=== PATIENT | female | born 1970 | race Hispanic/Latino ===

== ENCOUNTER 2019-10-08 02:20 | Inpatient (IN) | payer OTHER, SELFPAY ==
--- NOTE | 2019-10-08 03:19 | PDOC.FPRHP ---
- History of Present Illness Chief Complaint: Fall, L arm/leg weakness, dysarthria History of Present Illness: Pt is a 49 yo female with PMH significant for HTN, Graves, A-Fib who presented to the [facility] with left sided weakness, dysarthria. Her last normal was at 2300 on 10/07/19. Her family heard her take a fall in the bathroom at this time and found her on the ground. At this time she had weakness in her L upper and lower extremities, dysarthia. At the [facility] ED she was found to have an NIH 13, a-fib rate controlled. CT scan revealed ischemic injury in the R MCA distribution. Dr. Truong Castano was consulted and TPA was administered on transfer to [facility]. Pt is here visiting family from [place]. She is Telugu speaking only but family can help translate. She sees a tube repairer in [place]. - Allergies/Adverse Reactions Allergies Allergy/AdvReac Type Severity Reaction Status Date / Time No Known Allergies Allergy Unverified 10/08/19 04:13 - Home Medications Medication Instructions Recorded Confirmed Type Metoprolol Tartrate [Lopressor] 100 mg PO DAILY 10/08/19 10/08/19 History - History PMHx: HTN, Graves, A-Fib PSHx: none FHx: [place], DM, HTN Social: family denies alcohol, drugs, tobacco - Review of Systems ROS unobtainable: due to mental status - Vital signs BP: 136/85 HR: 77 RR: 16 Tmax: 98.0 Pox: 100% on RA Wt: 78 kg - Physical Exam -Constitutional: Pt responsive but unable to communicate effectively. Lying without acute distress. HEENT: PERRLA, EOMI, no scleral icterus Heart: normal S1/S2, pulses present, no edema -Heart: Irregular rhythm, regular rate Lungs: CTAB, no respiratory distress Abdomen: soft, bowel sounds present -Neurological: Dysarthria, incomprehensible speech Responds to verbal commands Sluggish pupillary light reflex L Tongue deviation, L facial droop No LUE movement, movement against gravity in LLE Unable to assess sensory due to mentation Skin: no rash/lesions Heme/Lymphatic: no purpura, no petechia FMR H&P: Results - Radiology Interpretation CT scan - head Status: report reviewed by me (R MCA Infarct) FMR H&P: A/P - Problem List (1) CVA (cerebral vascular accident) Current Visit: Yes Status: Acute Code(s): I63.9 - CEREBRAL INFARCTION, UNSPECIFIED (2) A-fib Current Visit: Yes Status: Acute Code(s): I48.91 - UNSPECIFIED ATRIAL FIBRILLATION (3) Graves disease Current Visit: Yes Status: Acute Code(s): E05.00 - THYROTOXICOSIS W DIFFUSE GOITER W/O THYROTOXIC CRISIS (4) HTN (hypertension) Current Visit: Yes Status: Acute Code(s): I10 - ESSENTIAL (PRIMARY) HYPERTENSION - Plan # CVA Embolic stroke likely secondary to atrial fibrillation. Family does not have her list of medications, unsure if pt was anti-coagulated in the outpt setting. 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 Pt also has history of TSH. LUE arm weakness no movement, LLE movement against gravity, dysarthria, facial droop, able to follow commands but does not make eye contact. CT head revealed R ischemic infarct in the MCA distribution. CTA head/neck revealed thrombus in carotid artery. NIH 13->20; GCS 12 - Neurosurg consulted, Dr. Truong Castano; he will perform thrombectomy today for R carotid artery thrombus; appreciate recs - Neurology consulted; appreciate recs - Echo, trop, UDS, TSH pending - NPO - PT/OT, speech consulted - Continous cardiac monitoring - Will need to discuss anticoag therapy post TPA - BP SBP 150-180 for TPA # A-Fib Unsure pt's medications, currently rate controlled. - Echo pending to assess thrombus - Will need t discuss anticoag therapy # HTN - as above - prn hypertensive medications # Hyperthyroidism - Continue home methimazole Fluids: none Diet: NPO VTE: none Code: Full - will need to reassess, currently mother is POA Dispo: > 48 hrs FMR H&P: Upper Level - Plan Date/Time: 10/08/19317 Lawrence Fisher MD, have evaluated this patient and agree with findings/plan as outlined by merchandising intern resident. Pertinent changes/additions are listed here. Stormy Salinas is a 49 year old F with a PMH of Hyperthyroidism, HTN, +/- hx of A fib who was transferred from [facility] for acute CVA. Pt is from [place] and is visiting family, she was in her usual state of health last night until around 2300 when family heard her fall in restroom. Found her on the floor and she had left sided facial droop, left side upper and lower extremity weakness and slurry/garbled speech. Took her to ED where CT brain revealed large left MCA CVA, no evidence of bleed. Outside ERMD discussed case with neurosurgery, Truong Castano MD, who recommended starting tPA. No exclusion criteria for thrombolysis. tPA started at 0124. EKG at outside ED showed A fib with controlled rate and ST depression in V4, V5, and V6. Vitals at outside ED showed elevated BP at 188/81 which improved to range from 130s to 170s systolic there. At [facility] ED, BP ranged from 112/86 to 158/108. No antihypertensives were ever given. All other vitals were stable and wnl. CTA head and neck was done here that showed clot in R ICA. Labs were significant for INR 1.1, PT 14, PTT 28.1, WBC 6.9, Hg 13.3, Cr 1.15, normal electrolytes. EKG here showed no change from previous. Trop was negative. On exam, GCS was 12, patient had L and R direct and consensual pupillary reflex, tongue deviated to left, unable to assess sensation adequately, 4/5 in Left LE, 1/5 in left UE, 5/5 in right UE and LE. Pain withdrew from pain in L LE and extended to pain in UE. She had proptosis and dysarthria. Patient is being admitted to CCU for acute CVA and tPA administration. Consult stroke team, PT, OT, Speech. NPO. Will consult pulmonology for CCU management in AM or if there is evidence of decompensation. Consult neuro in AM. Dr. Castano, neurosurgery, plans to do thrombectomy for clot in ICA. Monitor NIH score closely. BP goal 150-180. Will start ASA 24 hr after tPA complete. Will start high dose statin once tolerating PO. Anticipate hospital stay > 48 hours and will likely need placement. Please see merchandising intern note above for full H&P which I have reviewed and agree with.
[2019-10-08] MEDS ORDERED: [UNRECOGNIZED DRUG - REMARK] FS PRN (04:03)
[2019-10-08] MEDS ORDERED: hydrALAZINE 20 MG/ML VIAL SLOW IVP PRN (04:03)
[2019-10-08] MEDS ORDERED: Labetalol HCl 100 MG/20 ML VIAL SLOW IVP PRN (04:03)
[2019-10-08] MEDS ORDERED: Sodium Chloride 0.9% (PF) 10 ML VIAL FS PRN (04:35)
[2019-10-08] MEDS ORDERED: Heparin (Artline) 500 ML ONE ×2 (05:16→05:52)
[2019-10-08] MEDS ORDERED: Heparin 10,000 UNITS/1 ML VIAL ONE ×2 (05:17→06:14)
--- NOTE | 2019-10-08 06:08 | PRG ---
DATE OF SERVICE: 10/08/2019 Ms. Salinas is a 49-year-old female, who presented to an outside ER late this evening with dense hemiparesis and facial droop on her left. She underwent a noncontrast CT at the time, which was negative for hemorrhage. She was administered tPA and transferred to [facility] for further evaluation. Upon her arrival here, she underwent CT angiogram of the head, which revealed the presence of occlusion within the middle cerebral artery on the right side, which would be consistent with her clinical deficits. She was admitted to the ICU for further observation. The ER called me after she had been admitted to inform me of her imaging. I reviewed the imaging and decided she would be a good candidate for mechanical thrombectomy. The photographic laboratory technician and anesthesia were activated. The plan will be to perform cerebral angiography with potential mechanical thrombectomy. Job ID: [id number]
[2019-10-08] MEDS ORDERED: SUGAMMADEX SODIUM 500 MG/5 ML VIAL ONE (06:52)
--- NOTE | 2019-10-08 07:42 | CT ---
PRELIMINARY REPORT/DIRECT RADIOLOGY/EMERGENCY AFTER HOURS PROCEDURE: This report was discussed with Michel Henriquez RN by Nancy Madrigal on Oct 08, 2019 04:05:00 GAS LOAD DISPATCHER. Addendum electronically signed by Nancy Madrigal on October 08, 2019 4:06:14 AM GAS LOAD DISPATCHER EXAMS: 1. CTA Head, without and with Contrast 2. CTA Neck, with Contrast DATE/ TIME: 10/08/2019, 2:59 AM INDICATION: Left-sided hemiparesis. TPA administered at 0124 hrs. NIH 19. TECHNIQUE: Helical noncontrast CT imaging of the head was performed. Helical CT was then performed through the neck and brain during the rapid intravenous administration of 70 mL Isovue-370 utilizing angiographic protocol. The CTA data set was postprocessed with multiplanar MIPs generated. NOTE: Stenosis measurements based on the NASCET criteria and/or validated velocity measurements with angiographic measurements; velocity criteria are extrapolated from diameter data as defined by t he Society of Radiologists in Ultrasound Consensus Conference. Radiology 2003; 229; 340-346. Exam was performed using one or more of the following dose reduction techniques: automated exposure contr ol, adjustment of the mA and/or kV according to patient size, or use of iterative reconstruction technique. COMPARISON: None. CTA BRAIN FINDINGS: Noncontrast imaging shows no intracranial hemorrhage, mass or mass effect. A 2. 9 x 2.2 x 2.3 cm region of encephalomalacia is noted laterally in the left frontal lobe compatible with prior infarct. Subtle blurring of the murdock-white differentiation in the right insula is seen. Orbital structures are unremarkable. A 2.0 x 1.5 x 2.0 cm mucous retention cyst posteriorly in the right maxillary antrum is noted. Remaining paranasal sinuses and mastoid air cells are clear. Denta l disease is seen including periodontal bone resorption with dental caries. The right M1 segment is occluded. Contrast is seen within peripheral branches of the right MCA appar ently from collateralization. Posterior circulation appears to be normal. Neither posterior communicating artery is seen. IMPRESSION: 1. OCCLUDED right M1 segment with early noncontrast CT changes of an acute ischemic injury. 2. Remote infarct within the left frontal lobe. CTA NECK FINDINGS: The initial images begins at the level of the main pulmonary outflow tract. Visu alized upper lung zones are clear. The aortic arch is smooth. Three-vessel arch anatomy is demonstrated. Common carotid arteries are normal in course and caliber. In the right carotid bulb e xtending into the right external carotid artery is a bland 1.4 x 0.6 x 0.8 cm thrombus. Contrast is seen within the right internal carotid artery although the origin has a significantly compromised crescentic lumen. Mild soft plaquing is noted posteriorly in the left carotid bulb extending into the left internal carotid artery causing mild stenosis approximating 30 percent. Vertebral arteries are patent and relatively codominant. Thyroid gland is enlarged with the left lobe measuring 7.1 x 3.6 x 4.9 cm and the right 7.3 x 2.9 x 4.3 cm. The isthmus is thickened measuring 17 mm. There is n o malalignment within the visualized spine. IMPRESSION: 1. Large thrombus at the right carotid bulb narrowing the origin of the right internal carotid arter y. 2. Soft plaquing in the left carotid bulb. 3. Thyromegaly. ELECTRONICALLY SIGNED BY: Joseluis Kruger DO Oct 08, 2019 4:01:14 AM GAS LOAD DISPATCHER FINAL REPORT: CTA ANGIO HEAD WITH AND WITHOUT CONTRAST CT BRAIN WITHOUT CONTRAST: History: Stroke protocol. Comparison: CT brain same day. Findings: CT brain was performed without the intravenous administration of contrast. Subsequently CT angiogram was performed after the intravenous ministration of contrast. 3-D rendering provided. Impression: Findings and impression are concordant with the preliminary report. Transcribed Date/Time: 10/08/2019 7:53 AM
[2019-10-08 07:47] LABS: Actual Bicarbonate (HCO3a) 15.4 mEq/L (22-28); Base Excess (BEa) -11.9 mEq/L (-2.0 to +3.0); CO2 Tension 39.7 mmHg (35.0-45.0); Calcium, Ionized 1.01 mmol/L (1.12-1.30); Carboxyhemoglobin (COHb) 1.1 gm% (0.0-3.0); Hemoglobin (Hb) 12.4 g/dL (12.0-16.0); O2 Tension (PaO2) 80.9 mmHg (80.0-100.0); Potassium - ABG Lab 3.95 mmol/L (3.70-5.30)
[2019-10-08 07:48] LABS: ALV-art Gradient 225.975 (0-20); Puncture Site ALINE; pH, Arterial 7.21 (7.35-7.45)
[2019-10-08] MEDS ORDERED: methylPREDNISolone Sod Succ 40 MG VIAL IVP SCH (08:45)
[2019-10-08] MEDS ORDERED: Furosemide 20 MG/2 ML VIAL SLOW IVP SCH (09:00)
--- NOTE | 2019-10-08 09:01 | CON ---
DATE OF CONSULTATION: 10/08/2019 SERVICE: Pulmonary Medicine. REASON FOR CONSULTATION: ICU patient. HISTORY OF PRESENT ILLNESS: The patient is a 49-year-old female with past medical history significant for hypertension. She presented to the emergency department after onset of neurologic dysfunction. She was thought to be a candidate for tPA and brought to the manager cardiac cath. The tPA was administered overnight. During the procedure, she was sedated and intubated. She was promptly extubated, and brought to the ICU. Currently, she is poorly responsive. With stimulation, she will wake up appropriately and follows some simple commands. That being said, she appears to have some degree of obstructive sleep apnea as well as respiratory distress. I cannot get any additional elements of the history from the patient currently. PAST MEDICAL HISTORY: 1. Hypertension. 2. Graves' disease. 3. Atrial fibrillation. 4. History of stroke. PAST SURGICAL HISTORY: None. SOCIAL HISTORY: Negative for alcohol, tobacco, or illicit drug use. FAMILY HISTORY: Noncontributory. ALLERGIES: NO KNOWN DRUG ALLERGIES. MEDICATIONS: List of her inpatient medications were reviewed. I have added some Lasix and nebulized medications. REVIEW OF SYSTEMS: Cannot be obtained as the patient is currently obtunded. PHYSICAL EXAMINATION: VITAL SIGNS: Afebrile; pulse 80; blood pressure 192/80; respirations 14; and saturation 100%, currently on a Ventimask. GENERAL: The patient is somnolent. With some stimulation, she will wake up and follow appropriately. She will then drift off back to sleep. HEENT: Normocephalic and atraumatic. Sclerae are white. Conjunctivae are pink. Oral mucosa is moist without lesions. Exophthalmos is present. LUNGS: Decent air entry. There is a prolonged expiratory phase with both crackles, rhonchi, and wheezing present. HEART: Normal rate. Regular. ABDOMEN: Soft. Distended. Bowel sounds are hypoactive. MUSCULOSKELETAL: No cyanosis or clubbing. There is no pitting edema. NEUROLOGIC: Left upper extremity is weak. The left lower extremity has a 4- strength, everywhere else is 5/5. LABORATORY DATA: PH of 7.21, pCO2 of 39, and pO2 of 81. TSH is below the assay limit of 0.0025. Troponin 0.20. IMAGING DATA: CT of the [place] demonstrates no acute neuroimaging finding. Angiographic imaging shows no acute intracranial arterial pathology. There is a large thrombus, however, at the right carotid bulb narrowing the origin of the right internal carotid artery. Soft plaquing in the left carotid bulb is present. Thyromegaly is present. ASSESSMENT: 1. Acute cerebrovascular accident, status post tPA and subsequent mechanical thrombectomy. 2. Acute hypoxic respiratory failure. 3. Graves' disease with hyperthyroidism. 4. Metabolic encephalopathy. 5. Metabolic acidosis with inappropriate compensation. DISCUSSION AND PLAN: The patient has some crackles. I will give her a dose of Lasix. She is also wheezing and so we will initiate some nebulized medications. We are going to watch her airway very closely over the next 4 to 5 hours. If she shows any signs of increasing respiratory issues, repeat intubation will be performed. We will watch her very closely in the ICU. Hopefully, she will have good resolution of her neurologic insult. Critical Care will follow. I do believe that she would benefit from suppression of thyroid. 70 minutes have been devoted to this patient in various activities. I personally reviewed all imaging studies and laboratory data noted within this document. For fifty percent of this time, I was interacting with the patient at the bedside or coordinating care with the care team. For the remainder of the time I was immediately available to the patient in the hospital unit. Job ID: [id number] [facility]
--- NOTE | 2019-10-08 09:05 | CON ---
DATE OF CONSULTATION: 10/08/2019 CONSULTING PHYSICIAN: Hospitalist Service. IMPRESSION: 1. Acute left internal carotid artery stroke, status post thrombectomy. 2. Intermittent atrial fibrillation. 3. Hypertension. 4. Hyperthyroidism. 5. Respiratory distress, possibly secondary to some congestive heart failure. PLAN: 1. Repeat CT of the brain tomorrow. 2. Echocardiogram. 3. Consider long-term antiplatelet or anticoagulation depending on the cardiac status. HISTORY OF PRESENT ILLNESS: Ms. Salinas is a 49-year-old female, in town from [place]. She apparently collapsed to the floor and was noted to have left-sided weakness. She was initially treated with tPA and transferred here. CT angiogram showed some residual clot in the internal carotid artery. Dr. Castano did a thrombectomy last evening. She has been transferred to the ICU. She was transiently intubated. She is now extubated. She is Fijian-speaking only. There is no other available history. PAST HISTORY: Hypothyroidism. ALLERGIES: NONE KNOWN. SOCIAL HISTORY: Unknown. FAMILY HISTORY: Unknown. REVIEW OF SYSTEMS: Not obtainable. MEDICATIONS: Reportedly some hypothyroid supplement. PHYSICAL EXAMINATION: GENERAL: She is an overweight, middle-aged woman, lying in bed, with snoring respirations. VITAL SIGNS: Blood pressure 155/72, pulse 84, respirations 14, and saturations 100% with oxygen supplementation. HEENT: Her eyes are proptotic. Her pupils are equal. Eyes are conjugate. Conjunctivae are clear. Oropharynx clear. NECK: Supple. No lymphadenopathy. EXTREMITIES: No edema present. NEUROLOGIC: She will open her eyes to stimulation. We could not get her to verbalize. She had roving eye movements. Her face was grossly symmetric. She had some antigravity strength on the left side. She had better movement on the right. Plantar response was upgoing on the left and downgoing on the right. No abnormal movements were seen. IMAGING STUDIES: EKG shows a somewhat irregular rhythm, which appears to be intermittent sinus and atrial fibrillation intermixed by my assessment. LABORATORY STUDIES: Reviewed. SUMMARY: This is a middle-aged woman with a probable cardioembolic stroke resulting in left-sided paralysis. Continue to monitor her clinical course and make a plan of care depending on the findings. Job ID: [id number]
[2019-10-08] MEDS: Pantoprazole 40 MG VIAL IVP SCH (09:30)
[2019-10-08] MEDS: Metoprolol Tartrate 25 MG TAB PO SCH ×3 (09:35→21:30)
[2019-10-08] MEDS ORDERED: Iopamidol 370 76% 100 ML VIAL ONE (09:56)
[2019-10-08] MEDS ORDERED: Ondansetron PF 4 MG/2 ML Vial ONE (10:31)
[2019-10-08] MEDS ORDERED: Glycopyrrolate 0.2 MG/ML 5 ML SYRINGE ONE (10:31)
[2019-10-08] MEDS ORDERED: Succinylcholine Chloride 20 MG/ML 10 ml SYRINGE FS ONE (10:31)
[2019-10-08] MEDS ORDERED: PROPOFOL 200 MG/20 ML VIAL ONE (10:31)
[2019-10-08] MEDS ORDERED: PHENYLEPHRINE-NS 100 MCG/ML 10 ML SYRINGE ONE (10:31)
[2019-10-08] MEDS ORDERED: Rocuronium Bromide 10 MG/ML (10ML VIAL) ONE (10:31)
[2019-10-08] MEDS ORDERED: Lidocaine 1% PF 5 ML VIAL ONE (10:31)
[2019-10-08] MEDS ORDERED: niCARdipine 25 MG in Sodium Chloride 0.9% 250 ML 250 ML IVPB PRN (11:00)
[2019-10-08] MEDS ORDERED: Propofol 1,000 MG/100 ML VIAL IV ONE (11:23)
[2019-10-08] MEDS ORDERED: SYSTANE 3.5 GM TUBE EA EYE PRN (11:25)
[2019-10-08] MEDS ORDERED: Ventilator Sedation Protocol 1 EACH FS SCH (11:30)
[2019-10-08] MEDS ORDERED: Fentanyl BOLUS 250 ML IVPB PRN (11:32)
[2019-10-08] MEDS ORDERED: fentaNYL Citrate/PF 2,000 MCG in Sodium Chloride 0.9% 60 ML IV SCH (11:32)
[2019-10-08] MEDS ORDERED: Morphine 2 MG/ML SYRINGE SLOW IVP PRN (11:32)
[2019-10-08] MEDS ORDERED: DISCONTINUE PREVIOUS NARCOTIC PAIN MEDICATIONS AND BENZODIAZEPINES FS SCH (11:32)
[2019-10-08] MEDS ORDERED: Propofol BOLUS 1,000 MG/100 ML VIAL IV PRN (11:32)
[2019-10-08] MEDS: Lorazepam 2 MG/ML VIAL SLOW IVP PRN ×3 (12:12→19:53)
[2019-10-08] MEDS: Propylthiouracil 50 MG TAB PO SCH ×2 (12:20→18:09)
[2019-10-08 12:21] LABS: Actual Bicarbonate (HCO3a) 15.2 mEq/L (22-28); Base Excess (BEa) -9.7 mEq/L (-2.0 to +3.0); CO2 Tension 30.9 mmHg (35.0-45.0); Calcium, Ionized 1.06 mmol/L (1.12-1.30); Hemoglobin (Hb) 12.9 g/dL (12.0-16.0); O2 Tension (PaO2) 84.2 mmHg (80.0-100.0); Potassium - ABG Lab 3.83 mmol/L (3.70-5.30); pH, Arterial 7.31 (7.35-7.45)
[2019-10-08 12:42] LABS: Peep/CPAP 4.5 cmH2O; Puncture Site RRA
[2019-10-08 12:43] LABS: ALV-art Gradient 126.725 (0-20)
[2019-10-08] MEDS: Propofol 1,000 MG/100 ML VIAL IV PRN ×2 (13:40→18:16)
[2019-10-08] MEDS ORDERED: Hydrocortisone Sod Succ/PF 250 mg/2 ml Vial SLOW IVP SCH (14:00)
[2019-10-08] MEDS ORDERED: Hydrocortisone Sod Succ/PF 100 mg/2 ml Vial IVP SCH (14:30)
[2019-10-08] MEDS ORDERED: Diltiazem HCl 125 MG, Admixture Fee 1 EACH in Sodium Chloride 0.9% 100 ML IVPB SCH (14:45)
[2019-10-08] MEDS ORDERED: Iopamidol 370 76% 50 ML VIAL FS ONE ×2 (15:27→15:58)
--- NOTE | 2019-10-08 16:31 | OP ---
DATE OF PROCEDURE: 10/08/2019 SERVICE: Pulmonary Medicine. PROCEDURE PERFORMED: Emergent endotracheal intubation. CONSENT: Procedure was performed emergently secondary to clinical deterioration and respiratory failure. MEDICATIONS USED: Propofol 100 mg IV push. PREPROCEDURE DIAGNOSES: 1. Acute hypoxic respiratory failure. 2. Recent cerebrovascular accident with debility. 3. Respiratory failure secondary to inability to protect airway. POSTPROCEDURE DIAGNOSES: 1. Acute hypoxic respiratory failure. 2. Recent cerebrovascular accident with debility. 3. Respiratory failure secondary to inability to protect airway. DESCRIPTION OF PROCEDURE: Vital sign monitoring was accomplished by noninvasive hemodynamic monitoring, pulse oximetry, and telemetry. In the supine position, the patient was preoxygenated with [id number] ventilation and maintained with saturations of 100%. Following induction of anesthesia, a #3 GlideScope was inserted through the mouth, offering clear identification of the posterior oropharynx and laryngeal structures with a grade 2 view. A 7.5-Chinese endotracheal tube was visualized, passing through the vocal cords. Placement was confirmed by condensation in the endotracheal tube, colorimetric capnography, and bi-axillary chest auscultation. The endotracheal tube was secured at 23 cm, measured at the teeth. The patient was placed on mechanical ventilation with good return of volumes. Postprocedure x-ray demonstrated good location for the endotracheal tube in the trachea. ESTIMATED BLOOD LOSS: None. COMPLICATIONS: None. Job ID: [id number]
[2019-10-08 17:18] LABS: Amphetamine Not Detected (NotDetected); Barbiturates Screen Not Detected (NotDetected); Benzodiazepine Screen Detected (NotDetected); Cocaine Metabolite Screen Not Detected (NotDetected); Medtox Control Line Valid? VALID (VALID); Medtox Reader # READER 4; Methadone Not Detected (NotDetected); Methamphetamine Not Detected (NotDetected); Opiate Screen Not Detected (NotDetected); Oxycodone Screen Not Detected (NotDetected); Phencyclidine (PCP) Not Detected (NotDetected); THC/Cannabinoid Screen Not Detected (NotDetected); Tricyclic Screen Not Detected (NotDetected)
--- NOTE | 2019-10-08 18:06 | CT ---
CT OF BRAIN PERFORMED WITHOUT CONTRAST ENHANCEMENT: 10/08/19 HISTORY: Follow-up of stroke. COMPARISON: CT angio of head and CT noncontrast study of the brain performed earlier today. Old appearing infarct in the left parasylvian and occipital regions are again demonstrated. There is continued effacement of the sulci over the right frontal convexity and now there is some rel ative increased hyperdensity seen within the right parasylvian region. This would suggest some luxury perfusion. Changes probably represent petechial hemorrhage. There is effacement to the right frontal horn but not any significant shift of midline structures. IMPRESSION: Evidence for increasing edema change in the right middle cerebral artery territory. There is also elisha e mild hyperdensity in the external capsule region and the parasylvian region which could indicate carmelita xury perfusion and probably indicates fine petechial hemorrhage in this region. Follow CTs are recomm ended. POS: JOHN
--- NOTE | 2019-10-08 20:14 | CCL ---
DATE OF SERVICE: 10/08/19 SURGEON: Joseluis Castano M.D. CONVENTION PLANNER: None. INDICATION: Right middle cerebral artery thrombus with occlusion. PROCEDURE: Angiography with mechanical thrombectomy. ANESTHESIA: General. TECHNIQUE: The patient is brought to the angiogram suite and placed on the table in the supine position. She was placed under general anesthesia. Both groins were prepped and draped in the usual sterile fashion. F ollowing an appropriate preoperative pause, a 5 Cook Islander micropuncture set was used to gain access to t he right common femoral artery. That was exchanged for an 8 [place] Islander sheath. An 8 [place] Islander concentric dia de catheter was passed over a long vertebral catheter which was passed over a Bentzen guide wire wher e the right internal carotid artery was selectively catheterized. An AP and lateral angiogram was the n performed. After confirming presence of clot with occlusion of the M1 branch of the right middle ce rebral artery a Trevo device was deployed a total of three times. Each time there was material within the Trevo basket. The third time however, lead to complete zoroastrian of blood flow. All catheters were then removed. The sheath was sewn into place due to recent administration of TPA. The procedure came to an end without any known complication. IMPRESSION: The patient underwent successful angiography as well as successful mechanical thrombectomy with compl ete zoroastrian of normal blood flow.
[2019-10-08] MEDS: Hydrocortisone Sod Succ/PF 100 mg/2 ml Vial IVP SCH (21:30)
[2019-10-09] MEDS: Lorazepam 2 MG/ML VIAL SLOW IVP PRN ×2 (01:03→03:55)
[2019-10-09] MEDS: Propylthiouracil 50 MG TAB PO SCH ×2 (02:41→06:36)
[2019-10-09 05:58] LABS: Anion Gap 13 mmol/L (10-20); BUN (Urea Nitrogen) 18 mg/dL (9.8-20.1); Calc. Creatinine Clearance 75 mL/min (70-130); Calcium 8.3 mg/dL (7.8-10.44); Carbon Dioxide 18 mmol/L (22-29); Cardiac Risk 2.9 (Less than 4.5); Chloride 114 mmol/L (98-107); Cholesterol 94 mg/dl (< 200 Desired); Estimated GFR-MDRD 52; Glucose 161 mg/dL (70-105); HDL Cholesterol 32 mg/dL (>60 Neg Risk); LDL Cholesterol, Calculated 52 mg/dL; Potassium 3.2 mmol/L (3.5-5.1); Sodium 142 mmol/L (136-145); Triglycerides 52 mg/dL (Less than 150)
--- NOTE | 2019-10-09 06:14 | PDOC.FM ---
- Subjective Subjective: pt intubated and sedated, responds to pain and verbal stimulation - Objective Vital Signs & Weight: Vital Signs (12 hours) Temp Pulse Resp BP Pulse Ox 10/09/19 05:00 98.4 F 10/09/19 04:00 13 10/09/19 02:28 103 H 110/53 L 10/09/19 02:00 13 10/09/19 00:07 123 H 129/57 L 10/09/19 00:00 13 10/08/19 22:00 13 10/08/19 21:50 94 107/49 L 10/08/19 20:00 13 97 10/08/19 19:00 98.6 F 10/08/19 18:38 74 111/57 L Weight Admit Weight 71.214 kg Weight 79.7 kg Most Recent Monitor Data Heart Rate from ECG 106 NIBP 103/56 NIBP BP-Mean 76 Respiration from ECG 16 SpO2 95 I&O: 10/07/19 10/08/19 10/09/19 06:59 06:59 06:59 Intake Total 0 331 Output Total 0 2095 Balance 0 -1764 Result Diagrams: 10/09/19 05:10 10/09/19 05:10 Phys Exam - Physical Examination Constitutional: NAD HEENT: moist MMs pupils fixed and constricted Neck: supple Respiratory: clear to auscultation bilateral Cardiovascular: no significant murmur, irregular Gastrointestinal: soft Musculoskeletal: no edema, pulses present retracts from pain on right. non intentional movement on the left Skin: no rash Dx/Plan (1) A-fib Code(s): I48.91 - UNSPECIFIED ATRIAL FIBRILLATION Status: Acute (2) CVA (cerebral vascular accident) Code(s): I63.9 - CEREBRAL INFARCTION, UNSPECIFIED Status: Acute (3) Graves disease Code(s): E05.00 - THYROTOXICOSIS W DIFFUSE GOITER W/O THYROTOXIC CRISIS Status : Acute (4) HTN (hypertension) Code(s): I10 - ESSENTIAL (PRIMARY) HYPERTENSION Status: Acute - Plan Plan: CVA involving R MCA - s/p tPA, R ICA mechanical thrombectomy - Neurosurg consulted, Neurology consulted; appreciate recs - Echo, trop, UDS, wnl - post infarct cerebral edema- serial CTs- neurosurg aware ventilator care - required re-intubation 2/2 to resp. distress post op 1/3 - pulm consulted, appreciate recs A-Fib - rate controlled, continue BB - echo wnl - cards consulted, appreciate recs HTN - as above - prn hypertensive medications Hyperthyroidism - TSH low, T4 wnl - concern for thyroid storm, PTU began Hypokalemia - monitor and replace Fluids: LR @ 100ml/hr Diet: NPO Code: Full - will need to reassess, currently mother is POA Dispo: continue to monitor and treat on ccu
[2019-10-09] MEDS: Hydrocortisone Sod Succ/PF 100 mg/2 ml Vial IVP SCH ×3 (06:36→21:36)
[2019-10-09 06:40] LABS: #Lymphocytes 0.5 thou/uL (1.20-3.40); #Monocytes 0.4 thou/uL (0.11-0.59); #Neutrophils 11.2 thou/uL (1.40-6.50); %Eosinophils 0.1 % (0.0-10.0); %Lymphocytes 4.1 % (21.0-51.0); %Monocytes 3.5 % (0.0-10.0); %Neutrophils 92.4 % (42.0-75.0); Hemoglobin 11.5 g/dL (12.0-16.0); Mean Corpuscular HGB CONC 34.3 g/dL (32.0-36.0); Mean Corpuscular Hemoglobin 28.4 pg (27.0-31.0); Mean Corpuscular Volume 82.8 fL (78.0-98.0); Mean Platelet Volume 10.1 fL (7.4-10.4); Platelet Count 116 thou/uL (130-400); Platelet Morphology Comment Appears Decreased; RBC Distribution Width 12.6 % (11.5-14.5); Red Blood Cell (RBC) Count 4.06 mill/uL (4.20-5.40); White Blood Cell (WBC) Count 12.1 thou/uL (4.8-10.8)
[2019-10-09] MEDS ORDERED: Lactated Ringer's 1,000 ML IV SCH ×2 (08:15→10:23)
[2019-10-09] MEDS ORDERED: Potassium Chloride 40 MEQ in Sodium Chloride 0.9% 500 ML IVPB SCH (08:15)
[2019-10-09] MEDS: Pantoprazole 40 MG VIAL IVP SCH (08:23)
[2019-10-09] MEDS: Metoprolol Tartrate 25 MG TAB PO SCH ×2 (08:23→21:36)
--- NOTE | 2019-10-09 08:34 | CT ---
PRELIMINARY REPORT/[facility]/AFTER HOURS PROCEDURE CT HEAD WITHOUT INTRAVENOUS CONTRAST: CLINICAL HISTORY: F/U stroke. TECHNIQUE: Axial computed tomography images of the head/brain without intravenous contrast. COMPARISON: CT\SR - CT BRAIN WO CON - 10/08/2019 05:40 PM LEGAL STENOGRAPHER FINDINGS: BRAIN: Chronic microvascular ischemic disease is seen. Evolving hemorrhagic infarct is identified in the right basal ganglia with increased vasogenic edema and mild effacement of underlying sulci. Eff acement of the frontal horn of the right lateral ventricle is seen. No significant right to left mid line shift is seen. Old infarct with encephalomalacia is seen in the left frontoparietal lobe. Old infarct with encephalomalacia is identified in the left posterior parietal-occipital lobe. VENTRICLES: No hydrocephalus. ORBITS: The orbits are unremarkable. SINUSES AND MASTOIDS: The paranasal sinuses and mastoid air cells are clear. SOFT TISSUES: No significant facial or scalp soft tissue swelling evident. No radiopaque foreign body is seen. BONES: No acute skull fracture. IMPRESSION: Evolving hemorrhagic infarct in the right basal ganglia. ELECTRONICALLY SIGNED BY: Reed Noble MD Oct 09, 2019 4:37:05 AM LEGAL STENOGRAPHER This report is intended for review by the ordering physician only, in accordance of law. If you recei ve this report in error, please call [facility] at [phone]. FINAL REPORT CT BRAIN WITHOUT CONTRAST: I agree with the preliminary report given by Dr. Reed Noble of [facility]. CODE QA POS: [facility]
[2019-10-09] MEDS ORDERED: Digoxin 0.5 MG/2 ML AMP SLOW IVP SCH (10:30)
--- NOTE | 2019-10-09 10:44 | PRG ---
DATE OF SERVICE: 10/09/2019 SERVICE: Pulmonary Medicine. INTERVAL HISTORY: Overnight, the patient went down for a CT scan. Ultimately, there was some small hemorrhages that were identified. Otherwise, the patient did not have any significant changes overnight. She is exquisitely sensitive to stimulation. Whenever she is touched, she has purposeful movement, but is not following any commands in Amharic or [place] at this point. She had a low-grade temperature, but otherwise no overt fevers. PHYSICAL EXAMINATION: VITAL SIGNS: Afebrile, pulse 117, blood pressure 123/54, respirations 14, saturation 100% on 21% FiO2 and a PEEP of 5. GENERAL: The patient is intubated and sedated. HEENT: Normocephalic and atraumatic. Sclerae white. Conjunctivae pink. Oral mucosa is moist without lesions. LUNGS: Decent air entry. Rhonchi are present, but there is no prolonged expiratory phase. HEART: Normal rate. Regular. ABDOMEN: Soft, nontender, nondistended. Bowel sounds are positive. MUSCULOSKELETAL: No cyanosis or clubbing. There is no pitting in the bilateral lower extremities. LABORATORY DATA: WBC 12.1, hemoglobin 11.5, and platelets 116,000. PH 7.31, pCO2 of 31, PO2 of 85. Potassium 3.2. Basic metabolic profile is otherwise unremarkable. Creatinine 1.11. Liver function studies otherwise unremarkable. TSH is below the assay limit. T4 was performed yesterday, which fell within the normal limits. That being said, it was repeated today and elevated. This was after initiation of anti-thyroid medications. DIAGNOSTIC DATA: CT of the head demonstrates edema of the right MCA territory. Fine petechial hemorrhages were also identified in the external capsule of the perisylvian region evolving hemorrhagic infarct of the right basal ganglia. There is multiple areas of encephalomalacia associated with previous strokes. ASSESSMENT: 1. Acute cerebrovascular accident, status post tPA and subsequent mechanical thrombectomy. 2. Graves disease with hyperthyroidism. 3. Metabolic encephalopathy. 4. Metabolic acidosis, resolving. DISCUSSION AND PLAN: We will introduce some tube feeds. Every time we remove sedation, she is not purposeful but thrashes about. As such, we are going to sedate her again, initiate Precedex, remove the sheath and after the Precedex has a chance to be in, slowly titrate the propofol downward. IV fluids will be minimized to less than maintenance doses. She will remain on the ventilator overnight. CRITICAL CARE TIME: 30 minutes. Job ID: [id number]
--- NOTE | 2019-10-09 11:15 | PRG ---
DATE OF SERVICE: 10/09/2019 I have examined the patient and discussed the case with Dr. Kevin Dobbins. I agree with his assessment and plan. Unfortunately, the CT was pointing towards possible extension of a small hemorrhage associated with her stroke. Job ID: [id number]
[2019-10-09] MEDS: Propofol 1,000 MG/100 ML VIAL IV PRN (13:45)
[2019-10-09] MEDS: Famotidine 20 MG TAB PO SCH (21:36)
[2019-10-10 05:03] LABS: Anion Gap 11 mmol/L (10-20); BUN (Urea Nitrogen) 19 mg/dL (9.8-20.1); Calc. Creatinine Clearance 92 mL/min (70-130); Calcium 8.4 mg/dL (7.8-10.44); Carbon Dioxide 20 mmol/L (22-29); Chloride 116 mmol/L (98-107); Estimated GFR-MDRD 64; Glucose 137 mg/dL (70-105); Phosphorus 2.8 mg/dL (2.3-4.7); Potassium 4.5 mmol/L (3.5-5.1); Sodium 142 mmol/L (136-145)
[2019-10-10 05:07] LABS: #Lymphocytes 0.5 thou/uL (1.20-3.40); #Monocytes 0.5 thou/uL (0.11-0.59); #Neutrophils 8.1 thou/uL (1.40-6.50); %Eosinophils 0.2 % (0.0-10.0); %Lymphocytes 5.3 % (21.0-51.0); %Neutrophils 89.6 % (42.0-75.0); Hemoglobin 11.3 g/dL (12.0-16.0); Large Platelets SLIGHT; MDiff Complete? YES; Mean Corpuscular HGB CONC 33.6 g/dL (32.0-36.0); Mean Corpuscular Hemoglobin 28.2 pg (27.0-31.0); Mean Corpuscular Volume 83.9 fL (78.0-98.0); Platelet Count 84 thou/uL (130-400); Platelet Morphology Comment Appears Decreased; Red Blood Cell (RBC) Count 4.01 mill/uL (4.20-5.40)
[2019-10-10] MEDS: Hydrocortisone Sod Succ/PF 100 mg/2 ml Vial IVP SCH (06:19)
--- NOTE | 2019-10-10 06:21 | PDOC.FM ---
- Subjective Subjective: pt intubate and sedated, follows, responds to pain and verbal stimuli - Objective Vital Signs & Weight: Vital Signs (12 hours) Temp Pulse Resp BP Pulse Ox 10/10/19 06:00 21 H 10/10/19 04:00 98.6 F 20 10/10/19 02:30 95 142/75 H 10/10/19 02:00 15 10/10/19 00:11 82 143/63 H 10/10/19 00:00 98.3 F 17 10/09/19 22:17 89 128/57 L 10/09/19 22:00 14 10/09/19 20:00 13 100 10/09/19 19:00 97.8 F 10/09/19 18:45 85 141/59 H Weight Admit Weight 71.214 kg Weight 80.8 kg Most Recent Monitor Data Heart Rate from ECG 78 NIBP 144/58 NIBP BP-Mean 86 Respiration from ECG 19 SpO2 98 I&O: 10/08/19 10/09/19 10/10/19 06:59 06:59 06:59 Intake Total 0 860.2 907 Output Total 0 2235 1160 Balance 0 -1374.8 -253 Result Diagrams: 10/10/19 04:07 10/10/19 04:07 Phys Exam - Physical Examination Constitutional: NAD HEENT: moist MMs Neck: supple Respiratory: clear to auscultation bilateral Cardiovascular: no significant murmur, irregular Gastrointestinal: soft, no distention Musculoskeletal: no edema, pulses present some withdrawal to pain on left leg, none on L arm. purposeful movement on right Dx/Plan (1) A-fib Code(s): I48.91 - UNSPECIFIED ATRIAL FIBRILLATION Status: Acute (2) CVA (cerebral vascular accident) Code(s): I63.9 - CEREBRAL INFARCTION, UNSPECIFIED Status: Acute (3) Graves disease Code(s): E05.00 - THYROTOXICOSIS W DIFFUSE GOITER W/O THYROTOXIC CRISIS Status : Acute (4) HTN (hypertension) Code(s): I10 - ESSENTIAL (PRIMARY) HYPERTENSION Status: Acute - Plan Plan: CVA involving R MCA - s/p tPA, R ICA mechanical thrombectomy - Neurosurg consulted, Neurology consulted; appreciate recs - Echo, trop, UDS, wnl - consider restarting anti-coagulation ventilator care - required re-intubation 2/2 to resp. distress post op 1/3 - pulm consulted, appreciate recs - initiated tube feeds, precedex A-Fib - rate controlled, continue BB - echo wnl - cards consulted, appreciate recs HTN - as above - prn hypertensive medications Hyperthyroidism - TSH low, T4 wnl - concern for thyroid storm, PTU began Hypokalemia - monitor and replace Fluids: LR @ 100ml/hr Diet: NPO Code: Full - will need to reassess, currently mother is POA Dispo: continue to monitor for ability to wean vent
[2019-10-10] MEDS: Metoprolol Tartrate 25 MG TAB PO SCH ×2 (09:14→20:31)
[2019-10-10] MEDS: Famotidine 20 MG TAB PO SCH ×2 (09:14→20:31)
--- NOTE | 2019-10-10 10:48 | PRG ---
DATE OF SERVICE: 10/10/2019 I have examined the patient and discussed the case with Dr. Kevin Dobbins. I agree with his assessment and plan. Job ID: [id number]
[2019-10-10] MEDS ORDERED: Fleet Enema 133 ML BOT PR SCH (12:30)
[2019-10-10] MEDS ORDERED: Mineral Oil PER 1 ML PO SCH (12:30)
[2019-10-10] MEDS ORDERED: Milk Of Magnesia 30 ML UDCUP PO SCH (12:30)
--- NOTE | 2019-10-10 12:33 | PRG ---
DATE OF SERVICE: 10/10/2019 SERVICE: Pulmonary Medicine. INTERVAL HISTORY: The patient is doing fine from respiratory standpoint. That being said, from neurologic standpoint, she has not made any significant improvement. She cannot provide additional elements of the history. Currently, she is off sedation. She intermittently has appropriate movement. PHYSICAL EXAMINATION: VITAL SIGNS: Afebrile. Pulse 81, blood pressure 133/57, respirations 20, and saturation 99%, currently on 21% FiO2 and a PEEP of 5. GENERAL: The patient is intubated. She is under the influence of no sedation. HEENT: Normocephalic and atraumatic. Sclerae are white. Conjunctivae are pink. Oral mucosa is moist without lesions. LUNGS: Decent air entry. There are some rhonchi present, prolonged expiratory phase. HEART: Normal rate, regular. ABDOMEN: Soft. Distended. Bowel sounds are hypoactive. MUSCULOSKELETAL: No cyanosis or clubbing. No pitting in the bilateral lower extremities. LABORATORY DATA: WBC 9.0, hemoglobin 11.3, platelets 84,000. Neutrophils are 89%. Basic metabolic profile is unremarkable except for a chloride of 116. Bicarb is gently up trending. ASSESSMENT: 1. Acute cerebrovascular accident, status post tPA and subsequent mechanical thrombectomy. There has been interval formation of the hemorrhagic foci. 2. Grave disease with hyperthyroidism. 3. Metabolic encephalopathy. 4. Metabolic acidosis, resolved. DISCUSSION AND PLAN: We will continue our supportive care including antibiotics and ventilator support. Sedation will be minimized through time, and within the next 2 to 3 days, if we do not have a significant neurologic recovery, we will have to discuss with the primary decision makers how to proceed moving forward. She has not had a bowel movement in a couple of days. As such, a bowel regimen will be initiated. She will remain in the ICU. CRITICAL CARE TIME: 30 minutes. Job ID: [id number]
--- NOTE | 2019-10-10 20:25 | PDOC.BPN ---
- Brief Progress Note Paged about fever of 101F. Other VSS, neuro exam unchanged per nurse. Ordered Stat CXR, CBC, Lactic, Urine and Blood cultures. Will give tyleonl elixir per NG tube. Will reevaluate patient later this evening. Fever may be neurologic in origin, however will rule out infectious causes.
[2019-10-10] MEDS: Acetaminophen 650 MG/20.3 ML UDCUP PO PRN (20:31)
[2019-10-10 21:01] LABS: #Lymphocytes 0.8 thou/uL (1.20-3.40); #Monocytes 0.8 thou/uL (0.11-0.59); #Neutrophils 9.6 thou/uL (1.40-6.50); %Basophils 0.1 % (0.0-1.0); %Eosinophils 0.1 % (0.0-10.0); %Lymphocytes 6.9 % (21.0-51.0); %Monocytes 7.2 % (0.0-10.0); %Neutrophils 85.7 % (42.0-75.0); Hemoglobin 11.4 g/dL (12.0-16.0); Mean Corpuscular HGB CONC 33.2 g/dL (32.0-36.0); Mean Corpuscular Volume 84.5 fL (78.0-98.0); Mean Platelet Volume 10.2 fL (7.4-10.4); Platelet Count 89 thou/uL (130-400); RBC Distribution Width 13.2 % (11.5-14.5); Red Blood Cell (RBC) Count 4.06 mill/uL (4.20-5.40); White Blood Cell (WBC) Count 11.1 thou/uL (4.8-10.8)
--- NOTE | 2019-10-10 21:24 | RAD ---
PORTABLE CHEST: Date: 10/10/2019 HISTORY: Cough and fever. COMPARISON: 10/08/2019 exam. FINDINGS: Heart size is enlarged. Pulmonary vessels are mildly engorged. An endotracheal tube has been placed. The tip is at the enid, oriented slightly towards the right mainstem bronchus. It could be retracte d slightly for more optimal placement. NG tube is coiled in the fundus region of the stomach. IMPRESSION: 1. Cardiomegaly with mild vascular engorgement. 2. Endotracheal tube at the level of the enid could be retracted slightly for more optimal placeme nt. NG tube is coiled in the fundus region of the stomach. POS: [facility]
[2019-10-11 04:32] LABS: #Lymphocytes 0.7 thou/uL (1.20-3.40); #Monocytes 0.8 thou/uL (0.11-0.59); #Neutrophils 9.1 thou/uL (1.40-6.50); %Eosinophils 0.3 % (0.0-10.0); %Lymphocytes 6.9 % (21.0-51.0); %Monocytes 7.3 % (0.0-10.0); %Neutrophils 85.5 % (42.0-75.0); Hemoglobin 11.1 g/dL (12.0-16.0); Mean Corpuscular HGB CONC 32.8 g/dL (32.0-36.0); Mean Corpuscular Hemoglobin 27.9 pg (27.0-31.0); Mean Platelet Volume 10.8 fL (7.4-10.4); Platelet Count 79 thou/uL (130-400); RBC Distribution Width 13.2 % (11.5-14.5); Red Blood Cell (RBC) Count 3.97 mill/uL (4.20-5.40); White Blood Cell (WBC) Count 10.6 thou/uL (4.8-10.8)
[2019-10-11 04:33] LABS: Anion Gap 12 mmol/L (10-20); BUN (Urea Nitrogen) 23 mg/dL (9.8-20.1); Calc. Creatinine Clearance 95 mL/min (70-130); Calcium 8.3 mg/dL (7.8-10.44); Carbon Dioxide 19 mmol/L (22-29); Chloride 115 mmol/L (98-107); Estimated GFR-MDRD 67; Glucose 118 mg/dL (70-105); Potassium 3.6 mmol/L (3.5-5.1); Sodium 142 mmol/L (136-145)
[2019-10-11 04:52] LABS: Free T4 (Free Thyroxine) 1.89 ng/dL (0.70-1.48)
--- NOTE | 2019-10-11 06:41 | PDOC.FM ---
- Subjective Subjective: pt intubated, off sedation , follows commands, answers yes/no. - Objective Vital Signs & Weight: Vital Signs (12 hours) Temp Pulse Resp BP Pulse Ox 10/11/19 05:56 26 H 10/11/19 04:00 99.1 F 10/11/19 02:16 96 114/52 L 10/11/19 02:00 23 H 10/11/19 00:07 79 135/57 L 10/11/19 00:00 98.6 F 10/10/19 22:16 84 122/50 L 10/10/19 22:00 99.2 F 10/10/19 21:50 22 H 10/10/19 20:00 96 10/10/19 19:54 21 H 10/10/19 19:00 101 F H Weight Admit Weight 71.214 kg Weight 80.5 kg Most Recent Monitor Data Heart Rate from ECG 82 NIBP 134/58 NIBP BP-Mean 75 Respiration from ECG 28 SpO2 96 I&O: 10/09/19 10/10/19 10/11/19 06:59 06:59 06:59 Intake Total 860.2 907 1757.6 Output Total 2235 1160 1153 Balance -1374.8 -253 604.6 Result Diagrams: 10/11/19 03:50 10/11/19 03:50 Phys Exam - Physical Examination Constitutional: NAD HEENT: moist MMs Neck: supple crackles present Cardiovascular: no significant murmur, irregular Gastrointestinal: non-tender, no distention Musculoskeletal: no edema, pulses present some purposful movement on L Psychiatric: normal affect Skin: no rash Dx/Plan (1) A-fib Code(s): I48.91 - UNSPECIFIED ATRIAL FIBRILLATION Status: Acute (2) CVA (cerebral vascular accident) Code(s): I63.9 - CEREBRAL INFARCTION, UNSPECIFIED Status: Acute (3) Graves disease Code(s): E05.00 - THYROTOXICOSIS W DIFFUSE GOITER W/O THYROTOXIC CRISIS Status : Acute (4) HTN (hypertension) Code(s): I10 - ESSENTIAL (PRIMARY) HYPERTENSION Status: Acute - Plan Plan: CVA involving R MCA - s/p tPA, R ICA mechanical thrombectomy - Neurosurg consulted, Neurology consulted; appreciate recs - Echo, trop, UDS, wnl - consider restarting anti-coagulation fever overnight - workup so far negative - most likely related to cva, pt at risk for vap - zosyn, levaquin, vanc ventilator care - required re-intubation 2/2 to resp. distress post op 1/3 - pulm consulted, appreciate recs - initiated tube feeds, pt off sedation and following commands - consider extubation A-Fib - rate controlled, continue BB - echo wnl - cards consulted, appreciate recs HTN - as above - prn hypertensive medications Hyperthyroidism - TSH low, T4 wnl Hypokalemia - monitor and replace Diet: tube feeds Code: Full - will need to reassess, currently mother is POA Dispo: continue to monitor for ability to wean vent Addendum - Attending - Attending Attestation Date/Time: 10/11/19 7981 I personally evaluated the patient and discussed the management with the team. I agree with the History, Examination, Assessment and Plan documented above with any addition or exceptions noted below.
[2019-10-11] MEDS: Famotidine 20 MG TAB PO SCH ×2 (09:09→21:41)
[2019-10-11] MEDS: Metoprolol Tartrate 25 MG TAB PO SCH ×2 (09:09→21:41)
[2019-10-11] MEDS ORDERED: Methimazole 5 MG TAB PO SCH (10:45)
--- NOTE | 2019-10-11 10:58 | PRG ---
DATE OF SERVICE: 10/11/2019 SERVICE: Pulmonary Medicine. INTERVAL HISTORY: The patient is doing fine from respiratory standpoint. There are no reports of overnight events. She cannot provide any additional elements of the history. Otherwise, there has been no interval change. PHYSICAL EXAMINATION: VITAL SIGNS: Afebrile, pulse 93, blood pressure is 132/96, respirations 34, saturation 99%, currently on 31% FiO2 and a PEEP of 5. GENERAL: The patient is intubated. She is under the influence of a little sedation. HEENT: Normocephalic. Sclerae white. Conjunctivae pink. Oral mucosa is moist without lesions. LUNGS: Decent air entry. Rhonchi and crackles are both present. No prolonged expiratory phase. HEART: Normal rate and regular. ABDOMEN: Soft, nontender, nondistended. Bowel sounds are positive. MUSCULOSKELETAL: No cyanosis or clubbing. There is 1 to 2+ pitting throughout. NEUROLOGIC: Grossly nonfocal. LABORATORY DATA: WBC 10.6, hemoglobin 11.1, platelets 79,000 and gently dropping. PH 7.31, pCO2 of 31, pO2 of 84. Creatinine 0.89, BUN 23. Basic metabolic profile is otherwise unremarkable. Potassium 3.6. Free T4 level is elevated at 1.89, free T3 of 2.97 is within the normal limits. IMAGING: Chest x-ray demonstrates endotracheal tube is still a little deep. That being said, there is good aeration in bilateral lung dias. Pulmonary vascular congestion is present with little cardiomegaly. ASSESSMENT: 1. Acute hypoxic respiratory failure. 2. Cerebrovascular accident, status post tPA and subsequent mechanical thrombectomy, with interval formation of hemorrhagic foci. 3. Graves disease with hyperthyroidism. 4. Metabolic encephalopathy. 5. Chronic diastolic heart failure. DISCUSSION AND PLAN: The patient is doing okay from a mentation standpoint. We will need to start of her home methimazole. Potassium will be replaced today. I will recheck some laboratories tomorrow morning. I am going to give her good long sedation holiday today. If she does not wake up more appropriately, additional imaging of the brain may be considered. Critical Care time: 30 minutes. Job ID: [id number] MTDD
[2019-10-11] MEDS ORDERED: Methimazole 10 MG TAB PO SCH (11:15)
[2019-10-11] MEDS: Acetaminophen 650 MG/20.3 ML UDCUP PO PRN (11:43)
[2019-10-11 11:59] LABS: Bacteria/HPF 3+ HPF (None Seen); Bilirubin Negative (Negative); Blood, Urine 2+ (Negative); Clarity Turbid (Clear); Glucose, Urine (Dipstick) Normal (Negative); Leukocyte 500 Leu/uL (Negative); Nitrite 2+ (Negative); Protein, Urine (Dipstick) 20 mg/dL (Neg-Trace); RBC/HPF 21-50 HPF (0-3); Squamous Epithelial 0-3 HPF (0-3); WBC/HPF Greater than 50 HPF (0-3)
[2019-10-11] MEDS ORDERED: Sodium Bicarbonate Tab 325 MG TAB PER TUBE PRN (12:42)
[2019-10-11] MEDS ORDERED: Pancrelipase DR 12000 1 CAP FS PRN (12:42)
[2019-10-11] MEDS: Piperacillin/Tazobactam 3.375 GM in Sodium Chloride 0.9% 100 ML IVPB SCH ×2 (12:43→17:41)
[2019-10-11] MEDS: Polyethylene Glycol 3350 17 GM Packet PER TUBE SCH (12:45)
--- NOTE | 2019-10-11 18:33 | RAD ---
EXAM: CHEST ONE VIEW HISTORY: Fever. Follow-up evaluation. COMPARISON: 10/10/2019. FINDINGS: The endotracheal tube has been withdrawn with the tip now overlying the T4 vertebral body and just ab ove the level of the enid. Nasogastric tube remains in place and unchanged in position. Cardiac silhouette is magnified by projection but does appear enlarged. There is question of minimal pleural- based density at the lateral right lung base similar to prior study. This could be related to overlying soft tissue density or prominent extrapleural fat. Linear densities are seen at the left carmelita ng base suggesting mild atelectasis versus scarring, but these densities have improved from prior exam. No consolidation is seen. No other interval change. IMPRESSION: 1. Interval repositioning of the endotracheal tube which is now above the level of the enid. 2. Nasogastric tube stable in position. 3. Cardiomegaly without overt CHF. 4. Suggestion of minimal pleural-based density lateral right lung base. However, this could be relate d to either prominent extrapleural fat or overlying soft tissue density. 5. Improvement in linear and frequent changes left lung base with minimal atelectasis now present.
[2019-10-11] MEDS: Methimazole 10 MG TAB PO SCH (21:41)
[2019-10-12] MEDS: Piperacillin/Tazobactam 3.375 GM in Sodium Chloride 0.9% 100 ML IVPB SCH ×2 (00:12→05:17)
[2019-10-12] MEDS: Acetaminophen 650 MG/20.3 ML UDCUP PO PRN ×2 (05:17→22:29)
--- NOTE | 2019-10-12 06:53 | PDOC.FM ---
- Subjective Subjective: pt. intubate, off of sedation, denies pain. somnolent on exam. nurse reports follows commands and answers yes/no - Objective Vital Signs & Weight: Vital Signs (12 hours) Temp Pulse Resp BP Pulse Ox 10/12/19 04:00 101.0 F H 21 H 10/12/19 03:01 101 H 136/63 10/12/19 02:00 20 10/12/19 00:09 97 143/51 H 10/12/19 00:00 99.4 F 24 H 10/11/19 22:15 98 144/53 H 10/11/19 22:00 22 H 10/11/19 20:00 99.1 F 23 H 98 Weight Admit Weight 71.214 kg Weight 81.1 kg Most Recent Monitor Data Heart Rate from ECG 102 NIBP 138/65 NIBP BP-Mean 102 Respiration from ECG 35 SpO2 99 I&O: 10/10/19 10/11/19 10/12/19 06:59 06:59 06:59 Intake Total 907 1757.6 1316 Output Total 1160 1153 1590 Balance -253 604.6 -274 Result Diagrams: 10/12/19 08:04 10/12/19 08:04 Phys Exam - Physical Examination Constitutional: NAD HEENT: moist MMs Neck: no JVD Respiratory: clear to auscultation bilateral Cardiovascular: no significant murmur, irregular Gastrointestinal: soft, non-tender Musculoskeletal: no edema, pulses present Left arm 0/5 Skin: no rash Dx/Plan (1) A-fib Code(s): I48.91 - UNSPECIFIED ATRIAL FIBRILLATION Status: Acute (2) CVA (cerebral vascular accident) Code(s): I63.9 - CEREBRAL INFARCTION, UNSPECIFIED Status: Acute (3) Graves disease Code(s): E05.00 - THYROTOXICOSIS W DIFFUSE GOITER W/O THYROTOXIC CRISIS Status : Acute (4) HTN (hypertension) Code(s): I10 - ESSENTIAL (PRIMARY) HYPERTENSION Status: Acute - Plan Plan: CVA involving R MCA - s/p tPA, R ICA mechanical thrombectomy - Neurosurg consulted, Neurology consulted; appreciate recs - Echo, trop, UDS, wnl - consider repeat CT, restarting anti-coagulation UTI - fever, positive UA, indwelling catheter - zosyn ventilator care - required re-intubation 2/2 to resp. distress post op 1/3 - pulm consulted, appreciate recs - initiated tube feeds, pt off sedation and following commands - consider extubation A-Fib - rate controlled, continue BB - echo wnl - cards consulted, appreciate recs HTN - as above - prn hypertensive medications Hyperthyroidism - TSH low, T4 wnl Hypokalemia - monitor and replace Diet: tube feeds Code: Full - will need to reassess, currently mother is POA Dispo: continue to monitor for ability to wean vent Addendum - Attending - Attending Attestation Date/Time: 10/12/19 1202 I personally evaluated the patient and discussed the management with the team. I agree with the History, Examination, Assessment and Plan documented above with any addition or exceptions noted below. Change zosyn to rocephin. Begin methimazole per Dr. Elliott PT, ERT, Sed vac and if not able to be extubated we should be moving toward trach/peg.
--- NOTE | 2019-10-12 07:46 | RAD ---
XR Chest 1 View Portable History: Stroke. Respiratory failure Comparison: Radiograph prior day Findings: Patient is intubated endotracheal tube tip above the enid 1.2 cm. Heart size mildly enlar ged. Enteric tube is coiled within the stomach with tip at the gastric body. Mild pulmonary edema and pulmonary hypertension. Small to moderate right layering pleural effusion. N o pneumothorax. Impression: Similar examination of the chest.
[2019-10-12 08:39] LABS: #Eosinphils 0.2 thou/uL (0.0-0.7); #Lymphocytes 1.1 thou/uL (1.20-3.40); #Neutrophils 9.6 thou/uL (1.40-6.50); %Eosinophils 1.6 % (0.0-10.0); %Lymphocytes 9.1 % (21.0-51.0); %Monocytes 8.4 % (0.0-10.0); %Neutrophils 80.8 % (42.0-75.0); Hemoglobin 11.1 g/dL (12.0-16.0); Mean Corpuscular HGB CONC 33.6 g/dL (32.0-36.0); Mean Corpuscular Hemoglobin 29.2 pg (27.0-31.0); Mean Corpuscular Volume 87.1 fL (78.0-98.0); Mean Platelet Volume 10.5 fL (7.4-10.4); Platelet Count 87 thou/uL (130-400); Red Blood Cell (RBC) Count 3.78 mill/uL (4.20-5.40); White Blood Cell (WBC) Count 11.9 thou/uL (4.8-10.8)
[2019-10-12 08:49] LABS: Phosphorus 3.6 mg/dL (2.3-4.7)
[2019-10-12] MEDS: Famotidine 20 MG TAB PO SCH ×2 (08:50→20:01)
[2019-10-12] MEDS: Metoprolol Tartrate 25 MG TAB PO SCH ×2 (08:50→20:01)
[2019-10-12] MEDS: Methimazole 10 MG TAB PO SCH ×2 (08:50→20:01)
[2019-10-12 08:51] LABS: Anion Gap 14 mmol/L (10-20); BUN (Urea Nitrogen) 23 mg/dL (9.8-20.1); Calc. Creatinine Clearance 100 mL/min (70-130); Carbon Dioxide 20 mmol/L (22-29); Chloride 116 mmol/L (98-107); Estimated GFR-MDRD 71; Glucose 124 mg/dL (70-105); Magnesium 2.1 mg/dL (1.6-2.6); Potassium 3.6 mmol/L (3.5-5.1); Sodium 146 mmol/L (136-145)
[2019-10-12] MEDS: Polyethylene Glycol 3350 17 GM Packet PER TUBE SCH (08:51)
[2019-10-12] MEDS: cefTRIAXone\\ROCEPHIN 1 GM in Sodium Chloride 0.9% 100 ML IVPB SCH (11:59)
[2019-10-12] MEDS ORDERED: Furosemide 20 MG/2 ML VIAL SLOW IVP SCH (15:30)
[2019-10-12] MEDS: Dextrose 5% in Water 1,000 ML IV SCH (15:49)
--- NOTE | 2019-10-12 15:54 | PRG ---
DATE OF SERVICE: 10/12/2019 SERVICE: Pulmonary Medicine. INTERVAL HISTORY: Patient is doing fine from respiratory standpoint. That being said, when put on a spontaneous breathing trial at 5/5, her breaths are extraordinarily small. Her sputum production has improved a little bit, but she continues to have heavy sputum production. I am not convinced that she would be able to cough robustly in order to clear her secretions. She cannot provide any additional elements of the history. PHYSICAL EXAMINATION: VITAL SIGNS: Afebrile currently with a T-max of 101, pulse 110, blood pressure 143/66, respirations 29, saturation 100% on 21% FiO2 and PEEP of 5. GENERAL: The patient is intubated. She is on no sedation. HEENT: Normocephalic and atraumatic. Sclerae white. Conjunctivae pink. Oral mucosa is moist without lesions. LUNGS: Decent air entry. There is rhonchi present. No prolonged expiratory phase or wheezing is appreciated. HEART: Normal rate, regular. ABDOMEN: Soft, nontender, nondistended, bowel sounds are positive. MUSCULOSKELETAL: No cyanosis or clubbing. There is diffuse 1 to 2+ edema throughout. NEUROLOGIC: Grossly nonfocal. LABORATORY DATA: WBC 11.9, hemoglobin 11.1, platelets 87,000. Sodium 146. Basic metabolic profile is otherwise unremarkable. Creatinine 0.85 and roughly stable. Magnesium and phosphorous fall within the normal limits. Sputum aspirate is growing Staph aureus. E coli is growing in the urine. Sensitivities are currently pending. IMAGING: Chest x-ray demonstrates layering effusions bilaterally. Pulmonary vascular congestion and cardiomegaly are all present. Endotracheal tube is in good position. There is an enteric catheter coursing midline below the level of the diaphragm. ASSESSMENT: 1. Acute hypoxic respiratory failure. 2. Cerebrovascular accident, status post tPA and subsequent mechanical thrombectomy, with interval formation of hemorrhagic foci. 3. Graves disease with hyperthyroidism. 4. Metabolic encephalopathy. 5. Chronic diastolic heart failure. 6. Urinary tract infection secondary to Escherichia coli. 7. Tracheobronchitis secondary to Staph aureus. DISCUSSION AND PLAN: I will restart the vancomycin. The free water will be initiated for the sodium. The patient does remain volume up. As such, we will also continue to diurese her down to euvolemia. At this point, she is not stable for extubation. Critical Care will follow. Job ID: [id number]
[2019-10-13] MEDS: Dextrose 5% in Water 1,000 ML IV SCH (05:19)
[2019-10-13 06:34] LABS: #Eosinphils 0.5 thou/uL (0.0-0.7); #Lymphocytes 0.7 thou/uL (1.20-3.40); #Monocytes 1.1 thou/uL (0.11-0.59); #Neutrophils 9.2 thou/uL (1.40-6.50); %Eosinophils 4.1 % (0.0-10.0); %Lymphocytes 6.4 % (21.0-51.0); %Monocytes 9.4 % (0.0-10.0); %Neutrophils 80.1 % (42.0-75.0); Hemoglobin 10.8 g/dL (12.0-16.0); Mean Corpuscular HGB CONC 32.9 g/dL (32.0-36.0); Mean Corpuscular Hemoglobin 28.5 pg (27.0-31.0); Mean Corpuscular Volume 86.6 fL (78.0-98.0); Mean Platelet Volume 10.8 fL (7.4-10.4); Platelet Count 92 thou/uL (130-400); White Blood Cell (WBC) Count 11.4 thou/uL (4.8-10.8)
[2019-10-13 06:39] LABS: Anion Gap 11 mmol/L (10-20); BUN (Urea Nitrogen) 26 mg/dL (9.8-20.1); Calc. Creatinine Clearance 101 mL/min (70-130); Calcium 8.3 mg/dL (7.8-10.44); Carbon Dioxide 22 mmol/L (22-29); Chloride 115 mmol/L (98-107); Estimated GFR-MDRD 71; Glucose 129 mg/dL (70-105); Potassium 3.9 mmol/L (3.5-5.1); Sodium 144 mmol/L (136-145)
--- NOTE | 2019-10-13 08:05 | PDOC.FM ---
Addendum entered and electronically signed by Kevin Dobbins DO 10/13/19 09:09: cards has not been consulted. abx rocephin and vanc Original Note: - Subjective Subjective: pt resting bed, intubated, not sedated. follows commands - Objective Vital Signs & Weight: Vital Signs (12 hours) Temp Pulse Resp BP Pulse Ox 10/13/19 07:39 118 H 10/13/19 06:00 24 H 10/13/19 04:00 98.6 F 23 H 10/13/19 03:18 121 H 10/13/19 02:00 29 H 10/13/19 01:38 112 H 97 10/13/19 00:00 98.4 F 28 H 10/12/19 23:00 105 H 128/61 10/12/19 22:00 101.2 F H 25 H Weight Admit Weight 71.214 kg Weight 80.5 kg Most Recent Monitor Data Heart Rate from ECG 104 NIBP 106/66 NIBP BP-Mean 77 Respiration from ECG 27 SpO2 99 I&O: 10/12/19 10/13/19 10/14/19 06:59 06:59 06:59 Intake Total 2335 2739 Output Total 1675 2765 Balance 660 -26 Result Diagrams: 10/13/19 05:55 10/13/19 05:55 Phys Exam - Physical Examination Constitutional: NAD HEENT: moist MMs Neck: no JVD ronchorous Cardiovascular: no significant murmur, irregular Gastrointestinal: non-tender, no distention Musculoskeletal: no edema, pulses present L arm movement present Lymphatic: no nodes Skin: no rash Dx/Plan (1) A-fib Code(s): I48.91 - UNSPECIFIED ATRIAL FIBRILLATION Status: Acute (2) CVA (cerebral vascular accident) Code(s): I63.9 - CEREBRAL INFARCTION, UNSPECIFIED Status: Acute (3) Graves disease Code(s): E05.00 - THYROTOXICOSIS W DIFFUSE GOITER W/O THYROTOXIC CRISIS Status : Acute (4) HTN (hypertension) Code(s): I10 - ESSENTIAL (PRIMARY) HYPERTENSION Status: Acute - Plan Plan: CVA involving R MCA - s/p tPA, R ICA mechanical thrombectomy - Neurosurg consulted, Neurology consulted; appreciate recs - Echo, trop, UDS, wnl - anticoagulation held for post hemorrhagic conversion UTI - fever, positive UA, indwelling catheter - zosyn, vanc ventilator care - required re-intubation 2/2 to resp. distress post op 1/3 - pulm consulted, appreciate recs - initiated tube feeds, pt off sedation and following commands - consider extubation A-Fib - rate controlled, continue BB - echo wnl - cards consulted, appreciate recs HTN - as above - prn hypertensive medications Hyperthyroidism - TSH low, T4 wnl Hypokalemia - monitor and replace Diet: tube feeds Code: Full - will need to reassess, currently mother is POA Dispo: continue to monitor for ability to wean vent Addendum - Attending - Attending Attestation Date/Time: 10/13/19 8510 I personally evaluated the patient and discussed the management with the team. I agree with the History, Examination, Assessment and Plan documented above with any addition or exceptions noted below. Now with staph from sputum cx - will restart vanc.
[2019-10-13] MEDS: Metoprolol Tartrate 25 MG TAB PO SCH ×2 (08:37→21:53)
[2019-10-13] MEDS: Famotidine 20 MG TAB PO SCH ×2 (08:37→21:53)
[2019-10-13] MEDS: Methimazole 10 MG TAB PO SCH ×2 (08:37→21:53)
[2019-10-13] MEDS: Polyethylene Glycol 3350 17 GM Packet PER TUBE SCH (08:38)
[2019-10-13] MEDS ORDERED: Furosemide 20 MG/2 ML VIAL SLOW IVP SCH (09:00)
[2019-10-13] MEDS ORDERED: Dextrose 5% in Water 1,000 ML IV SCH (10:18)
[2019-10-13 10:30] LABS: ALT (SGPT) 29 U/L (8-55); AST (SGOT) 36 U/L (5-34); Albumin 3.1 g/dL (3.5-5.0); Alkaline Phosphatase 108 U/L (40-110); Bilirubin, Direct 0.4 mg/dL (0.1-0.3); Bilirubin, Total 0.7 mg/dL (0.2-1.2); Protein, Total 6.1 g/dL (6.0-8.3)
--- NOTE | 2019-10-13 10:37 | PRG ---
DATE OF SERVICE: 10/13/2019 SERVICE: Pulmonary Medicine. INTERVAL HISTORY: The patient is doing fine from respiratory standpoint. Breathing comfortably. No complaints of chest discomfort, nausea, vomiting, fevers, or chills. She remains on mechanical ventilator, but on no sedation. She is awake and alert. She is following commands. PHYSICAL EXAMINATION: VITAL SIGNS: Afebrile with T-max of 101.2, pulse 96, blood pressure 118/65, respirations 31, saturation 97% on 21% FiO2 and a PEEP of 5. GENERAL: The patient is intubated. She is on no sedation. Awake and alert. HEENT: Normocephalic and atraumatic. Sclerae white. Conjunctivae pink. Oral mucosa is moist without lesions. LUNGS: Decent air entry. Extensive rhonchi are present. No crackles or wheezing appreciated. HEART: Normal rate and regular. ABDOMEN: Soft, nontender, nondistended. Bowel sounds are positive. MUSCULOSKELETAL: No cyanosis or clubbing. There is no pitting in the bilateral lower extremities. LABORATORY DATA: WBC 11.4, hemoglobin 10.8, platelets 92,000 and gently up trending. PH 7.31, pCO2 of 31, pO2 of 84. Basic metabolic profile is completely unremarkable otherwise. Staph aureus is growing in the respiratory culture, which is pansensitive. E coli is growing in the urine. Blood cultures are growing coag-negative Staph in one out of two. ASSESSMENT: 1. Acute hypoxic respiratory failure. 2. Cerebrovascular accident, status post tPA and subsequent mechanical thrombectomy with interval formation of hemorrhagic foci. 3. Graves disease with hyperthyroidism. 4. Metabolic encephalopathy. 5. Chronic diastolic heart failure. 6. Urinary tract infection secondary to Escherichia coli. 7. Tracheobronchitis secondary to Staphylococcus aureus. DISCUSSION AND PLAN: The staph is sensitive to the Rocephin. The Rocephin is also covering E coli. No additional antibiotics are indicated currently. Her secretions have significantly improved. Her mentation has also improved significantly over the last 24 hours. As such, we will put the patient on a good spontaneous breathing trial. If she meets criteria, extubation will be considered. Pulmonary/Critical Care will follow closely. CRITICAL CARE TIME: 30 minutes. Job ID: [id number]
[2019-10-13] MEDS ORDERED: Vancomycin 1.5 GRAM/300 ML BAG 1.5 GM in Premix Bag 1 BAG IVPB SCH (11:00)
[2019-10-13] MEDS: cefTRIAXone\\ROCEPHIN 1 GM in Sodium Chloride 0.9% 100 ML IVPB SCH (11:42)
--- NOTE | 2019-10-13 21:19 | RAD ---
SUPINE PORTABLE AP VIEW ABDOMEN: 10/13/19 HISTORY: Dobhoff feeding tube placement. FINDINGS: Dobhoff feeding tube is noted in place which overlies the upper abdomen. The tip overlies the expect ed location of the distal aspect of the pylorus or possibly overlying the first portion of the duoden um. Bowel gas pattern is nonspecific. IMPRESSION: Dobhoff feeding tube noted in place as described above. POS: JOHN
[2019-10-14 05:23] LABS: #Eosinphils 0.6 thou/uL (0.0-0.7); #Neutrophils 7.1 thou/uL (1.40-6.50); %Basophils 0.1 % (0.0-1.0); %Eosinophils 6.7 % (0.0-10.0); %Lymphocytes 9.9 % (21.0-51.0); %Monocytes 9.9 % (0.0-10.0); %Neutrophils 73.5 % (42.0-75.0); Hemoglobin 11.6 g/dL (12.0-16.0); Mean Corpuscular HGB CONC 33.1 g/dL (32.0-36.0); Mean Corpuscular Hemoglobin 28.6 pg (27.0-31.0); Mean Corpuscular Volume 86.2 fL (78.0-98.0); Mean Platelet Volume 10.6 fL (7.4-10.4); Platelet Count 105 thou/uL (130-400); RBC Distribution Width 12.7 % (11.5-14.5); Red Blood Cell (RBC) Count 4.04 mill/uL (4.20-5.40); White Blood Cell (WBC) Count 9.7 thou/uL (4.8-10.8)
[2019-10-14 05:37] LABS: Anion Gap 11 mmol/L (10-20); BUN (Urea Nitrogen) 22 mg/dL (9.8-20.1); Calc. Creatinine Clearance 110 mL/min (70-130); Calcium 8.6 mg/dL (7.8-10.44); Carbon Dioxide 24 mmol/L (22-29); Chloride 112 mmol/L (98-107); Estimated GFR-MDRD 79; Glucose 101 mg/dL (70-105); Potassium 3.7 mmol/L (3.5-5.1); Sodium 143 mmol/L (136-145)
--- NOTE | 2019-10-14 08:25 | PDOC.FM ---
- Subjective Subjective: pt resting comfortably in her neuro chair, answers questions appropriately. denies pain - Objective Vital Signs & Weight: Vital Signs (12 hours) Temp Pulse Resp Pulse Ox 10/14/19 04:00 99.4 F 10/14/19 00:47 103 H 24 H 98 Weight Admit Weight 71.214 kg Weight 77.5 kg Most Recent Monitor Data Heart Rate from ECG 102 NIBP 147/89 NIBP BP-Mean 108 Respiration from ECG 25 SpO2 99 I&O: 10/13/19 10/14/19 10/15/19 06:59 06:59 06:59 Intake Total 2739 1697 Output Total 2765 1630 Balance -26 67 Result Diagrams: 10/14/19 04:56 10/14/19 04:56 Phys Exam - Physical Examination Constitutional: NAD HEENT: moist MMs Neck: full ROM Respiratory: no wheezing, no rhonchi Cardiovascular: no significant murmur, irregular Gastrointestinal: soft, non-tender Musculoskeletal: no edema, pulses present Neurological: moves all 4 limbs decreased strength in LUE Psychiatric: normal affect Skin: no rash Dx/Plan (1) A-fib Code(s): I48.91 - UNSPECIFIED ATRIAL FIBRILLATION Status: Acute (2) CVA (cerebral vascular accident) Code(s): I63.9 - CEREBRAL INFARCTION, UNSPECIFIED Status: Acute (3) Graves disease Code(s): E05.00 - THYROTOXICOSIS W DIFFUSE GOITER W/O THYROTOXIC CRISIS Status : Acute (4) HTN (hypertension) Code(s): I10 - ESSENTIAL (PRIMARY) HYPERTENSION Status: Acute - Plan Plan: CVA involving R MCA - s/p tPA, R ICA mechanical thrombectomy - Neurosurg consulted, Neurology consulted; appreciate recs - Echo, trop, UDS, wnl - anticoagulation held for post hemorrhagic conversion - pt/ot/st/cm consulted UTI - fever, positive UA, indwelling catheter - rocephin ventilator care - required re-intubation 2/2 to resp. distress post op 1/3 - pulm consulted, appreciate recs - extubated 10/14, sputum cultures staph sensitive to rocephin A-Fib - rate controlled, continue BB - echo wnl HTN - as above - prn hypertensive medications Hyperthyroidism - TSH low, T4 wnl Hypokalemia - monitor and replace Diet: tube feeds Code: Full Dispo: stable to txfr to stroke Addendum - Attending - Attending Attestation Date/Time: 10/14/19 1208 I personally evaluated the patient and discussed the management with Dr. Dobbins. I agree with the History, Examination, Assessment and Plan documented above with any addition or exceptions noted below. Extubated and improving. Can raise her left arm. [employer] ANALYST following, xfer to floor today.
--- NOTE | 2019-10-14 08:32 | RAD ---
Exam: Chest one view HISTORY:Evaluate Dobbhoff feeding tube placement Comparison: 10/12/2019 FINDINGS: Cardiac silhouette:Cardiomegaly. Aorta: Unremarkable Lines and tubes: Interval removal of endotracheal and nasogastric tube. Dobbhoff feeding tube has bee n placed and terminates in the gastric antrum. Consider advancement. Pulmonary vessels: Normal Costophrenic angles: Clear LUNGS: Stable patchy interstitial reticulonodular opacities. Pneumothorax: None Osseous abnormalities: None IMPRESSION: 1. Stable patchy interstitial reticulonodular opacities. 2. Interval removal of endotracheal and nasogastric tube. 3. Interval placement of Dobbhoff feeding tube with the distal tip at the level of the gastric antrum . Transcribed Date/Time: 10/14/2019 8:22 AM
--- NOTE | 2019-10-14 08:50 | PRG ---
DATE OF SERVICE: 10/14/2019 SERVICE: Pulmonary Medicine. INTERVAL HISTORY: The patient is doing fine from respiratory standpoint. She remains on room air. No complaints of chest discomfort, nausea, vomiting, fevers or chills. Otherwise, there has been no interval change to her condition. She is up in the neuro chair. Her strength is improving on a day-by-day basis. PHYSICAL EXAMINATION: VITAL SIGNS: Afebrile with a T-max of 100.6. Pulse 102, blood pressure 147/89, respirations 25, and saturation 99%, currently on room air. GENERAL: The patient is awake and alert, in no apparent distress. LUNGS: Decent air entry. Rhonchi are present, but she has a very strong cough. HEART: Normal rate and regular. ABDOMEN: Soft, nontender, and nondistended. Bowel sounds are positive. MUSCULOSKELETAL: No cyanosis or clubbing. There is no pitting edema. LABORATORY DATA: WBC 9.7, hemoglobin 11.6, and platelets 105,000. Basic metabolic profile is unremarkable. Potassium 3.7. Staph aureus and E coli are growing in various places. IMAGING DATA: Chest x-ray demonstrates no acute change. There is interval removal of the endotracheal tube. Small-bore feeding catheter is in good position. ASSESSMENT: 1. Acute hypoxic respiratory failure, resolved. 2. Cerebrovascular accident, status post tPA and subsequent mechanical thrombectomy with interval formation of hemorrhagic foci. 3. Graves disease with hyperthyroidism. 4. Metabolic encephalopathy. 5. Chronic diastolic heart failure. 6. Urinary tract infection secondary to Escherichia coli. 7. Tracheobronchitis secondary to Staph aureus. DISCUSSION AND PLAN: The patient is doing fine from respiratory standpoint. I will replace potassium. She is stable for transition to the stroke unit. When she leaves the ICU, I will sign off. Call with additional questions or concerns. Job ID: [id number]
[2019-10-14] MEDS: Polyethylene Glycol 3350 17 GM Packet PER TUBE SCH (11:09)
[2019-10-14] MEDS: Metoprolol Tartrate 25 MG TAB PO SCH ×2 (12:25→21:27)
[2019-10-14] MEDS: Famotidine 20 MG TAB PO SCH ×2 (12:25→21:27)
[2019-10-14] MEDS: Methimazole 10 MG TAB PO SCH ×2 (13:25→21:27)
[2019-10-14] MEDS: cefTRIAXone\\ROCEPHIN 1 GM in Sodium Chloride 0.9% 100 ML IVPB SCH (13:25)
[2019-10-15] MEDS ORDERED: Simethicone Chewable 80 MG TAB PO SCH (01:45)
[2019-10-15] MEDS: Benzonatate 100 MG CAP PO SCH ×2 (04:57→05:02)
[2019-10-15] MEDS: Guaifenesin DM 100-10/5 ML UDCUP PER TUBE PRN ×2 (05:37→21:18)
--- NOTE | 2019-10-15 08:17 | PDOC.FM ---
- Subjective Subjective: pt resting comfortably in bed, did not sleep well overnight because of gas pain , has since resolved. - Objective Vital Signs & Weight: Vital Signs (12 hours) Temp Pulse Resp BP Pulse Ox 10/15/19 07:42 98.6 F 97 26 H 121/55 L 96 10/15/19 07:27 91 14 96 10/15/19 04:21 98.3 F 104 H 21 H 121/56 L 99 Weight Admit Weight 71.214 kg Weight 76.204 kg Most Recent Monitor Data Heart Rate from ECG 132 NIBP 138/91 NIBP BP-Mean 106 Respiration from ECG 30 SpO2 100 I&O: 10/14/19 10/15/19 10/16/19 06:59 06:59 06:59 Intake Total 1697 590 Output Total 1630 Balance 67 590 Result Diagrams: 10/14/19 04:56 10/14/19 04:56 Phys Exam - Physical Examination Constitutional: NAD HEENT: moist MMs Neck: full ROM Respiratory: clear to auscultation bilateral Cardiovascular: no significant murmur, irregular Gastrointestinal: soft, non-tender Musculoskeletal: no edema, pulses present Neurological: moves all 4 limbs weakness in LUE Psychiatric: normal affect Dx/Plan (1) A-fib Code(s): I48.91 - UNSPECIFIED ATRIAL FIBRILLATION Status: Acute (2) CVA (cerebral vascular accident) Code(s): I63.9 - CEREBRAL INFARCTION, UNSPECIFIED Status: Acute (3) Graves disease Code(s): E05.00 - THYROTOXICOSIS W DIFFUSE GOITER W/O THYROTOXIC CRISIS Status : Acute (4) HTN (hypertension) Code(s): I10 - ESSENTIAL (PRIMARY) HYPERTENSION Status: Acute - Plan Plan: CVA involving R MCA - s/p tPA, R ICA mechanical thrombectomy - Neurosurg consulted, Neurology consulted; appreciate recs - Echo, trop, UDS, wnl - anticoagulation held for post hemorrhagic conversion - pt/ot/st/cm consulted UTI - fever, positive UA, indwelling catheter - rocephin A-Fib - rate controlled, continue BB - echo wnl HTN - as above - prn hypertensive medications Hyperthyroidism - TSH low, T4 wnl Hypokalemia - monitor and replace Diet: tube feeds Code: Full Dispo: continue to evaluate ability to swallow. Addendum - Attending - Attending Attestation Date/Time: 10/15/19901 I personally evaluated the patient and discussed the management with Dr. Dobbins. I agree with the History, Examination, Assessment and Plan documented above with any addition or exceptions noted below.
[2019-10-15] MEDS ORDERED: Furosemide 20 MG TAB PO SCH (09:00)
[2019-10-15] MEDS: Metoprolol Tartrate 25 MG TAB PO SCH ×2 (09:48→20:52)
[2019-10-15] MEDS: Famotidine 20 MG TAB PO SCH ×2 (09:48→20:52)
[2019-10-15] MEDS: Polyethylene Glycol 3350 17 GM Packet PER TUBE SCH (09:49)
[2019-10-15] MEDS: Methimazole 10 MG TAB PO SCH ×2 (09:49→20:52)
[2019-10-15] MEDS: cefTRIAXone\\ROCEPHIN 1 GM in Sodium Chloride 0.9% 100 ML IVPB SCH (11:43)
--- NOTE | 2019-10-15 14:20 | RAD ---
BARIUM SWALLOW WITH SPEECH THERAPIST: History: Dysphagia following cerebral infarction I69.391. Dysphagia, unspecified R13.10. Feeding difficulties R63.3. Comparison: None. Findings: Multiple consistencies of contrast given to the patient via the speech pathologist. No aspiration was appreciated. Impression: Fluoroscopy per the speech pathologist. Please see the report for details of the exam. Transcribed Date/Time: 10/15/2019 2:23 PM
--- NOTE | 2019-10-16 07:13 | PDOC.FM ---
- Subjective Subjective: Seen at bedside, sleeping comfortably. No concerns from nursing or patient. No new complaints - Objective MAR Reviewed: Yes Vital Signs & Weight: Vital Signs (12 hours) Temp Pulse Resp BP Pulse Ox 10/16/19 04:00 97.6 F 92 18 135/63 93 L 10/16/19 00:00 97.4 F L 116 H 20 112/73 95 10/15/19 22:55 100 16 10/15/19 20:26 97 10/15/19 20:00 98.9 F 144 H 22 H 134/74 97 Weight Admit Weight 71.214 kg Weight 76.204 kg Most Recent Monitor Data Heart Rate from ECG 132 NIBP 138/91 NIBP BP-Mean 106 Respiration from ECG 30 SpO2 100 I&O: 10/15/19 10/16/19 10/17/19 06:59 06:59 06:59 Intake Total 590 1260 Balance 590 1260 Result Diagrams: 10/14/19 04:56 10/14/19 04:56 Phys Exam - Physical Examination Constitutional: NAD HEENT: moist MMs Respiratory: clear to auscultation bilateral Cardiovascular: RRR, no significant murmur Gastrointestinal: no distention Musculoskeletal: no edema LUE weakness, otherwise normal Psychiatric: normal affect Dx/Plan (1) A-fib Code(s): I48.91 - UNSPECIFIED ATRIAL FIBRILLATION Status: Acute (2) CVA (cerebral vascular accident) Code(s): I63.9 - CEREBRAL INFARCTION, UNSPECIFIED Status: Acute (3) Graves disease Code(s): E05.00 - THYROTOXICOSIS W DIFFUSE GOITER W/O THYROTOXIC CRISIS Status : Acute (4) HTN (hypertension) Code(s): I10 - ESSENTIAL (PRIMARY) HYPERTENSION Status: Acute - Plan Plan: CVA involving R MCA - s/p tPA, R ICA mechanical thrombectomy - Neurosurg and Neurology following - anticoagulation held for post hemorrhagic conversion. Will discuss anitcoag therapy resumption with neuro - pt/ot/st/cm are working with pt, diet to be puree and nectar/thick - currently working to find placement options UTI - has had 3 days of rocephin. Will dc abx today A-Fib - rate controlled, continue BB - echo wnl HTN - as above - prn hypertensive medications Hyperthyroidism - TSH low, T4 wnl Hypokalemia, resolved Diet: HH, puree, nectar/thick Code: Full Dispo: good condition. Will need continued ST and will work to find rehab placement Addendum - Attending - Attending Attestation Date/Time: 10/16/19 0374 I personally evaluated the patient and discussed the management with Dr. Lombardo I agree with the History, Examination, Assessment and Plan documented above with any addition or exceptions noted below. Appreciate Neurology/Neurosurgery for recommendation f/u CT scanning and timing for consideration restarting any anticoagulation/antiplatelets in the future.
[2019-10-16] MEDS: Polyethylene Glycol 3350 17 GM Packet PER TUBE SCH (09:59)
[2019-10-16] MEDS: Famotidine 20 MG TAB PO SCH ×2 (09:59→22:32)
[2019-10-16] MEDS: Methimazole 10 MG TAB PO SCH ×2 (10:00→22:33)
[2019-10-16] MEDS: Metoprolol Tartrate 25 MG TAB PO SCH ×2 (10:00→22:33)
[2019-10-16] MEDS: Guaifenesin DM 100-10/5 ML UDCUP PER TUBE PRN (22:33)
--- NOTE | 2019-10-17 06:07 | PDOC.FM ---
- Subjective Subjective: Seen at bedside this morning. No acute events over night. No complaints from patient - Objective Vital Signs & Weight: Vital Signs (12 hours) Temp Pulse Resp BP Pulse Ox 10/17/19 03:58 97 F L 89 16 110/55 L 97 10/17/19 00:00 97.7 F 91 24 H 126/62 98 10/16/19 20:00 98.6 F 106 H 20 128/68 98 10/16/19 19:25 96 Weight Admit Weight 71.214 kg Weight 74.48 kg Most Recent Monitor Data Heart Rate from ECG 132 NIBP 138/91 NIBP BP-Mean 106 Respiration from ECG 30 SpO2 100 I&O: 10/15/19 10/16/19 10/17/19 06:59 06:59 06:59 Intake Total 590 1260 480 Balance 590 1260 480 Result Diagrams: 10/14/19 04:56 10/14/19 04:56 Phys Exam - Physical Examination Constitutional: NAD HEENT: moist MMs Respiratory: clear to auscultation bilateral Cardiovascular: RRR, no significant murmur Gastrointestinal: no distention Musculoskeletal: no edema Continued L sided weakness Psychiatric: A&O x 3 Skin: no rash Dx/Plan (1) A-fib Code(s): I48.91 - UNSPECIFIED ATRIAL FIBRILLATION Status: Acute (2) CVA (cerebral vascular accident) Code(s): I63.9 - CEREBRAL INFARCTION, UNSPECIFIED Status: Acute (3) Graves disease Code(s): E05.00 - THYROTOXICOSIS W DIFFUSE GOITER W/O THYROTOXIC CRISIS Status : Acute (4) HTN (hypertension) Code(s): I10 - ESSENTIAL (PRIMARY) HYPERTENSION Status: Acute - Plan Plan: CVA involving R MCA - s/p tPA, R ICA mechanical thrombectomy - Neurosurg and Neurology following, will need recommendations for when to restart anticoagulation/antiplatelet due to recent hx of post procedural bleed. - pt/ot/st/cm are working with pt, diet to be puree and nectar/thick - currently working to find placement options UTI, resolved A-Fib - rate controlled HTN - controlled - prn hypertensive medications Hyperthyroidism - TSH low, T4 wnl Hypokalemia, resolved Diet: HH, puree, nectar/thick Code: Full Dispo: good condition. Will need continued ST and will work to find rehab placement. Would expect 1-2 days of hospitalization Addendum - Attending - Attending Attestation Date/Time: 10/17/19 9916 I personally evaluated the patient and discussed the management with Dr. Lombardo I agree with the History, Examination, Assessment and Plan documented above with any addition or exceptions noted below. Continue PT care Reported short run of Asymptomatic wide complex tachycardia last pm rec:check lytes, T4 level, Mg, troponins, continue BB and consult Cardiology prn for further recommendations.
[2019-10-17] MEDS: Methimazole 10 MG TAB PO SCH ×2 (09:32→21:35)
[2019-10-17] MEDS: Metoprolol Tartrate 25 MG TAB PO SCH ×2 (09:32→21:35)
[2019-10-17] MEDS: Famotidine 20 MG TAB PO SCH ×2 (09:32→21:35)
[2019-10-17] MEDS: Polyethylene Glycol 3350 17 GM Packet PER TUBE SCH (09:33)
--- NOTE | 2019-10-17 11:22 | CT ---
CT Brain WO Con History: MCA infarction. Hemorrhagic conversion. Comparison: CT brain October 09, 2019 Findings: Encephalomalacia left frontal operculum and left posterior MCA territory. Continued decreas ed attenuation right MCA territory infarction with some retraction of the hemorrhagic clot. No acute superimposed hemorrhage or infarct. No significant midline shift. No mass effect. Calvarium is intact. Impression: Evolution of right MCA territory infarction without significant increase in size.
--- NOTE | 2019-10-17 15:03 | CON ---
DATE OF CONSULTATION: 10/17/2019 REASON FOR CONSULTATION: Wide-complex rhythm. HISTORY OF PRESENT ILLNESS: Ms. Salinas is a pleasant 49-year-old female, who comes to the hospital for left arm weakness and dysarthria. She was admitted back on the October 08, and she was found to have a large stroke. She eventually had tPA administered since she has had hemorrhagic conversion of her CVA. She has a history of atrial fibrillation, but she was not on any anticoagulation prior to this. She is from [place] and is visiting here for the holidays. She is Samoan-speaking only, but she understands everything I told her in Samoan. 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 PAST MEDICAL HISTORY: 1. Hypertension. 2. Graves disease. 3. Atrial fibrillation. OUTPATIENT MEDICATIONS: Metoprolol 100 mg a day. ALLERGIES: NO KNOWN DRUG ALLERGIES. PAST SURGICAL HISTORY: None. FAMILY HISTORY: Early coronary artery disease. SOCIAL HISTORY: No alcohol, tobacco, or drugs. REVIEW OF SYSTEMS: Unable to be given as she is nonverbal currently. PHYSICAL EXAMINATION: VITAL SIGNS: Temperature 97.3, pulse 92, respiratory rate 16, saturation 96% on room air, blood pressure 126/64. GENERAL: Awake, alert, and nonverbal. HEENT: Normocephalic and atraumatic. NECK: Supple. LUNGS: Clear. CARDIOVASCULAR: S1 and S2. Irregularly irregular. Heart rate in the 90s. ABDOMEN: Soft. Positive bowel sounds. EXTREMITIES: No edema. SKIN: Warm and dry. LABORATORY DATA: Laboratory work was reviewed. White count of 9.7, hemoglobin of 11.6, hematocrit of 34, and platelet count of 105. Chemistry, last on , normal sodium and potassium. Direct bilirubin is high at 0.4, but total bilirubin is normal at 1.7. AST mildly elevated at 36. Albumin of 3.1. UA looks turbid with 2+ blood, 2+ nitrites, greater than 50 white cells, and 3+ bacteria, this was in the . Toxicology was positive for benzodiazepines, which she got in the hospital. IMAGING STUDIES: CTs of the brain, most recently one done this morning showed stable hemorrhagic conversion of an acute right MCA territory infarction. There was some retraction of the hemorrhagic clot. No acute superimposed hemorrhage or infarct, so, it is improving. Telemetry was reviewed. She has been in AFib throughout, but she has some wide-complex rhythm, which is most likely aberrant conduction of her AFib as it is at the same rate and same irregularity as her underlying AFib. If it were a nonsustained VT, which is very unlikely all she would need was a beta-gloria which she is already on. ASSESSMENT/PLAN: 1. Wide-complex rhythm. Likely aberrant conduction of her atrial fibrillation. Very unlikely to be nonsustained ventricular tachycardia. Would only recommend to continue beta-gloria for this. 2. Acute cerebrovascular accident, likely from atrial fibrillation. Recommendation is for full anticoagulation once her hemorrhagic conversion from her stroke, and done probably at least a month out, but not any time soon. Thank you for letting us to participate in the care of your patient. We will sign off. Please call with any questions. Job ID: [id number]
[2019-10-17] MEDS: Guaifenesin DM 100-10/5 ML UDCUP PER TUBE PRN (21:34)
[2019-10-17] MEDS: Acetaminophen 650 MG/20.3 ML UDCUP PO PRN (21:34)
--- NOTE | 2019-10-18 05:36 | PDOC.FM ---
- Subjective Subjective: NAEO. Patient reports her weakness and speech have improved since admission. Denies any headaches, chest pain or palpitations. - Objective MAR Reviewed: Yes Vital Signs & Weight: Vital Signs (12 hours) Temp Pulse Resp BP Pulse Ox 10/18/19 04:18 98.0 F 80 14 113/84 97 10/17/19 23:21 97.3 F L 74 15 98 10/17/19 20:10 95 10/17/19 19:30 97.6 F 89 19 135/63 93 L Weight Admit Weight 71.214 kg Weight 74.344 kg Most Recent Monitor Data Heart Rate from ECG 132 NIBP 138/91 NIBP BP-Mean 106 Respiration from ECG 30 SpO2 100 I&O: 10/16/19 10/17/19 10/18/19 06:59 06:59 06:59 Intake Total 1260 720 Balance 1260 720 Result Diagrams: 10/14/19 04:56 10/14/19 04:56 Phys Exam - Physical Examination Constitutional: NAD HEENT: moist MMs exophthalmos Neck: supple, full ROM Respiratory: no wheezing, no rales, no rhonchi, clear to auscultation bilateral Cardiovascular: RRR, no significant murmur Musculoskeletal: no edema R-sided weakness compared to the left in UE; R-sided perioral facial droop Psychiatric: normal affect, A&O x 3 Skin: no rash, normal turgor, cap refill <2 seconds Dx/Plan (1) A-fib Code(s): I48.91 - UNSPECIFIED ATRIAL FIBRILLATION Status: Chronic (2) CVA (cerebral vascular accident) Code(s): I63.9 - CEREBRAL INFARCTION, UNSPECIFIED Status: Acute (3) Graves disease Code(s): E05.00 - THYROTOXICOSIS W DIFFUSE GOITER W/O THYROTOXIC CRISIS Status : Chronic (4) HTN (hypertension) Code(s): I10 - ESSENTIAL (PRIMARY) HYPERTENSION Status: Chronic - Plan Plan: CVA involving R MCA - s/p tPA, R ICA mechanical thrombectomy - Neurosurg and Neurology following, will touch base with them today regarding recommendations for when to restart anticoagulation/antiplatelet w/ recent hx of post procedural bleed as cards reported no sooner than 1 month from now. - pt/ot/st/cm are working with pt, diet to be puree and nectar/thick - currently working to find placement options, choice letters signed today. Wide complex tachycardia - Card consulted & reported likely 2/2 aberrant conduction from a fib & tx is BB which she is already on. Appreciate recs. - Continue to monitor on tele. A-Fib - rate controlled, continue BB therapy HTN - controlled on current regimen - prn hypertensive medications on board Hyperthyroidism - TSH low, T4 wnl - Continue methomazole Normocytic Anemia - Needs outpatient workup Hypokalemia, resolved CAUTI, resolved Diet: HH, puree, nectar/thick Code: Full Dispo: Remains in good condition. Will need continued ST and CM working to find rehab placement. Would expect 1-2 more days of hospitalization pending placement vs. home since patient is uninsured. Addendum - Attending - Attending Attestation Date/Time: 10/18/19 1984 I personally evaluated the patient and discussed the management with Dr. Doshi. I agree with the History, Examination, Assessment and Plan documented above with any addition or exceptions noted below. Working with case management and social work team to arrange ongoing care.
[2019-10-18] MEDS: Methimazole 10 MG TAB PO SCH ×2 (09:54→22:09)
[2019-10-18] MEDS: Famotidine 20 MG TAB PO SCH ×2 (09:54→22:07)
[2019-10-18] MEDS: Metoprolol Tartrate 25 MG TAB PO SCH ×2 (09:59→22:07)
[2019-10-18] MEDS: Polyethylene Glycol 3350 17 GM Packet PER TUBE SCH (10:00)
--- NOTE | 2019-10-19 05:51 | PDOC.FM ---
- Subjective Subjective: NAEO. Patient has no complaints this AM. States her speech & weakness continue to improve. Denies any headache, vision changes, palpitations or chest pain. - Objective MAR Reviewed: Yes Vital Signs & Weight: Vital Signs (12 hours) Temp Pulse Resp BP Pulse Ox 10/19/19 04:53 98.4 F 94 18 134/63 97 10/19/19 00:00 97.9 F 77 18 161/73 H 99 10/18/19 20:37 96.8 F L 102 H 18 118/61 97 10/18/19 20:08 97 Weight Admit Weight 71.214 kg Weight 73.799 kg Most Recent Monitor Data Heart Rate from ECG 132 NIBP 138/91 NIBP BP-Mean 106 Respiration from ECG 30 SpO2 100 I&O: 10/17/19 10/18/19 10/19/19 06:59 06:59 06:59 Intake Total 720 720 430 Balance 720 720 430 Result Diagrams: 10/14/19 04:56 10/14/19 04:56 Phys Exam - Physical Examination Constitutional: NAD HEENT: moist MMs exophthalmos Neck: no nodes, no JVD Respiratory: no wheezing, no rales, no rhonchi, clear to auscultation bilateral Cardiovascular: RRR, no significant murmur Musculoskeletal: no edema Neurological: moves all 4 limbs 4/5 weakness in R extremities vs. 5/5 on the left improved R-sided perioral facial droop Psychiatric: A&O x 3 Skin: no rash, normal turgor, cap refill <2 seconds Dx/Plan (1) A-fib Code(s): I48.91 - UNSPECIFIED ATRIAL FIBRILLATION Status: Chronic (2) CVA (cerebral vascular accident) Code(s): I63.9 - CEREBRAL INFARCTION, UNSPECIFIED Status: Acute (3) Graves disease Code(s): E05.00 - THYROTOXICOSIS W DIFFUSE GOITER W/O THYROTOXIC CRISIS Status : Chronic (4) HTN (hypertension) Code(s): I10 - ESSENTIAL (PRIMARY) HYPERTENSION Status: Chronic - Plan Plan: 49YOF w/ a PMH significant for hyperthyroidism, HTN & a fib who presented w/ R- sided weakness & was found to have a R MCA CVA, received TPA & mechanical thrombectomy but then developed a post-op bleed & CAUTI that have since resolved. CVA involving R MCA - s/p tPA & R ICA mechanical thrombectomy - Neurosurg and Neurology following, will touch base with them today regarding recommendations for when to restart anticoagulation/antiplatelet w/ recent hx of post procedural bleed as cards reported no sooner than 1 month from now. - pt/ot/st/cm are working with pt, diet to be puree and nectar/thick per ST - currently working to find rehab placement options, choice letters signed yesterday. Wide complex tachycardia - Card consulted & reported likely 2/2 aberrant conduction from a fib & tx is BB which she is already on. Appreciate recs. - Continue to monitor on tele. A-Fib - rate controlled, continue BB therapy HTN - controlled on current regimen - prn hypertensive medications on board Hyperthyroidism - TSH low, T4 wnl - Continue methomazole Normocytic Anemia - Needs outpatient workup Hypokalemia, resolved CAUTI, resolved Diet: HH, puree, nectar/thick Code: Full Dispo: Remains in good condition. Will need continued ST and CM working to find rehab placement. Would expect 1-2 more days of hospitalization pending placement vs. home since patient is uninsured. Addendum - Attending - Attending Attestation Date/Time: 10/19/19 7002 I personally evaluated the patient and discussed the management with Dr. Doshi. I agree with the History, Examination, Assessment and Plan documented above with any addition or exceptions noted below.
[2019-10-19] MEDS: Polyethylene Glycol 3350 17 GM Packet PER TUBE SCH (09:26)
[2019-10-19] MEDS: Famotidine 20 MG TAB PO SCH ×2 (10:04→21:42)
[2019-10-19] MEDS: Methimazole 10 MG TAB PO SCH ×2 (10:04→21:42)
[2019-10-19] MEDS: Metoprolol Tartrate 25 MG TAB PO SCH ×2 (10:04→21:42)
[2019-10-19] MEDS: Guaifenesin DM 100-10/5 ML UDCUP PER TUBE PRN (16:25)
[2019-10-19] MEDS: Acetaminophen 650 MG/20.3 ML UDCUP PO PRN (18:15)
--- NOTE | 2019-10-20 06:41 | PDOC.FM ---
- Subjective Subjective: NAEO. No complaints this AM. Getting stronger everyday. - Objective MAR Reviewed: Yes Vital Signs & Weight: Vital Signs (12 hours) Temp Pulse Resp BP Pulse Ox 10/20/19 04:00 98.1 F 77 16 120/57 L 95 10/19/19 23:46 97.9 F 77 18 104/59 L 98 10/19/19 19:39 97.7 F 104 H 18 119/58 L 97 Weight Admit Weight 71.214 kg Weight 73.754 kg Most Recent Monitor Data Heart Rate from ECG 132 NIBP 138/91 NIBP BP-Mean 106 Respiration from ECG 30 SpO2 100 I&O: 10/18/19 10/19/19 10/20/19 06:59 06:59 06:59 Intake Total 720 530 875 Output Total 200 Balance 720 530 675 Result Diagrams: 10/14/19 04:56 10/14/19 04:56 Phys Exam - Physical Examination Constitutional: NAD HEENT: moist MMs exophthalmos Neck: supple Respiratory: no wheezing, no rales, no rhonchi, clear to auscultation bilateral Cardiovascular: RRR, no significant murmur Neurological: moves all 4 limbs R-sided perioral facial droop improved from yesterday 4/5 weakness in R extremities w/ 5/5 on left Psychiatric: normal affect, A&O x 3 Skin: no rash, normal turgor Dx/Plan (1) A-fib Code(s): I48.91 - UNSPECIFIED ATRIAL FIBRILLATION Status: Chronic (2) CVA (cerebral vascular accident) Code(s): I63.9 - CEREBRAL INFARCTION, UNSPECIFIED Status: Acute (3) Graves disease Code(s): E05.00 - THYROTOXICOSIS W DIFFUSE GOITER W/O THYROTOXIC CRISIS Status : Chronic (4) HTN (hypertension) Code(s): I10 - ESSENTIAL (PRIMARY) HYPERTENSION Status: Chronic (5) ICH (intracerebral hemorrhage) Code(s): I61.9 - NONTRAUMATIC INTRACEREBRAL HEMORRHAGE, UNSPECIFIED Status: Acute - Plan Plan: 49YOF w/ a PMH significant for hyperthyroidism, HTN & a fib who presented w/ R- sided weakness & was found to have a R MCA CVA, received TPA & mechanical thrombectomy but then developed a post-op bleed & CAUTI that have since resolved. CVA involving R MCA - s/p tPA & R ICA mechanical thrombectomy w/ hemorrhagic conversion following procedure that had resolved/was stable as of 10/17/19. - Neurosurg stated ok to resume Eliquis & ASA. ASA resumed today but see plan below for anticoagulation issue. - pt/ot/st/cm are working with pt, diet to be puree and nectar/thick per ST - currently working to find rehab placement options, choice letters signed 2 days ago but patient rejected from [facility] & [place]. Various NHs still reviewing case. Will f/u w/ CM today regarding this. Wide complex tachycardia - Card consulted & reported likely 2/2 aberrant conduction from a fib & tx is BB which she is already on & signed off. Appreciate recs. - Continue to monitor on tele. A-Fib - rate controlled, continue BB therapy - Ok to resume anticoagulation to prevent recurrent CVA per NS recs; however, after a thorough chart review & questioning of the patient, she was never on anything for anticoagulation for her Afib. Per CM can get a free 30 day supply and apply for their assistance program to be able to afford but will otherwise only likely be able to afford coumadin. Will touch base with with NS again today to see how long patient needs to wait before starting coumadin but could possibly start eliquis with free 30 days given patient has good follow-up with a local PCP. Will refer her to [facility] for post-d/c follow-up & CM with provide her with patient assistance program information. HTN - controlled on current regimen - prn hypertensive medications on board Hyperthyroidism - TSH low, T4 wnl - Continue methomazole Normocytic Anemia - Needs outpatient workup Hypokalemia, resolved CAUTI, resolved Diet: HH, puree, nectar/thick Code: Full Dispo: Remains in good condition. Per CM will most likely not be placed so will meet with family and CM today to discuss this with family and see if they are ok taking her home later today rather than awaiting more denials. Addendum - Attending - Attending Attestation Date/Time: 10/21/19 9809 I personally evaluated the patient and discussed the management with Dr. Doshi yesterday morning. I agree with the History, Examination, Assessment and Plan documented above with any addition or exceptions noted below.
[2019-10-20] MEDS: Polyethylene Glycol 3350 17 GM Packet PER TUBE SCH (10:05)
[2019-10-20] MEDS: Metoprolol Tartrate 25 MG TAB PO SCH ×2 (10:06→21:04)
[2019-10-20] MEDS: Methimazole 10 MG TAB PO SCH ×2 (10:06→21:04)
[2019-10-20] MEDS: Famotidine 20 MG TAB PO SCH ×2 (10:06→21:04)
--- NOTE | 2019-10-21 06:34 | PDOC.FM ---
- Subjective Subjective: NAEO. Patient states she feels well this AM & weakness is getting better. No chest pain, SOB, N/V/D or constipation. - Objective MAR Reviewed: Yes Vital Signs & Weight: Vital Signs (12 hours) Temp Pulse Resp BP Pulse Ox 10/21/19 03:57 98 F 73 16 123/57 L 97 10/20/19 23:54 98.3 F 84 16 127/63 99 10/20/19 20:00 97.9 F 74 16 113/57 L 95 Weight Admit Weight 71.214 kg Weight 73.709 kg Most Recent Monitor Data Heart Rate from ECG 132 NIBP 138/91 NIBP BP-Mean 106 Respiration from ECG 30 SpO2 100 I&O: 10/19/19 10/20/19 10/21/19 06:59 06:59 06:59 Intake Total 530 965 483 Output Total 200 100 Balance 530 765 383 Result Diagrams: 10/14/19 04:56 10/14/19 04:56 Phys Exam - Physical Examination Constitutional: NAD HEENT: moist MMs Neck: supple Respiratory: no wheezing, no rales, no rhonchi, clear to auscultation bilateral Cardiovascular: RRR, no significant murmur Neurological: moves all 4 limbs 4/5 strength in left extremities vs. 5/5 on right Psychiatric: normal affect, A&O x 3 Skin: no rash, normal turgor, cap refill <2 seconds Dx/Plan (1) A-fib Code(s): I48.91 - UNSPECIFIED ATRIAL FIBRILLATION Status: Chronic (2) CVA (cerebral vascular accident) Code(s): I63.9 - CEREBRAL INFARCTION, UNSPECIFIED Status: Acute (3) Graves disease Code(s): E05.00 - THYROTOXICOSIS W DIFFUSE GOITER W/O THYROTOXIC CRISIS Status : Chronic (4) HTN (hypertension) Code(s): I10 - ESSENTIAL (PRIMARY) HYPERTENSION Status: Chronic (5) ICH (intracerebral hemorrhage) Code(s): I61.9 - NONTRAUMATIC INTRACEREBRAL HEMORRHAGE, UNSPECIFIED Status: Acute - Plan Plan: 49YOF w/ a PMH significant for hyperthyroidism, HTN & a fib who presented w/ R- sided weakness & was found to have a R MCA CVA, received TPA & mechanical thrombectomy but then developed a post-op bleed & CAUTI that have since resolved. CVA involving R MCA - s/p tPA & R ICA mechanical thrombectomy w/ hemorrhagic conversion following procedure that had resolved/was stable as of 10/17/19. - Neurosurg stated ok to resume Eliquis & ASA. ASA resumed yesterday & will consider starting on Eliquis today vs. waiting to start coumadin as an outpatient. - pt/ot/st/cm are working with pt, diet to be puree and nectar/thick per ST - currently working to find rehab placement options, choice letters signed 2 days ago but patient rejected from [facility] & [facility]. Various NHs still reviewing case. - Had extensive discussion with patient & family with CM present using cultural link regarding high likelihood that patient will not be placed & will have to return home with family upon discharge. Explained we will assist them in every way we can with plans to be able to provide them with a month's worth of all necessary medications, a walker & likely HH PT, OT & ST. Family agreeable to this. Patient to f/u at [facility] upon discharge in addition to NS & cardiology for HH therapy & to ensure she is able to continue anticoagulation therapy. A-Fib - rate controlled, continue BB therapy - Ok to resume anticoagulation to prevent recurrent CVA per NS recs; however, after a thorough chart review & questioning of the patient, she was never on anything for anticoagulation for her Afib. Per CM can get a free 30 day supply and apply for their assistance program to be able to afford but will otherwise only likely be able to afford coumadin. Will touch base with NS again today to see how long patient needs to wait before starting coumadin but could possibly start eliquis with free 30 days given patient has good follow-up with a local PCP. Will refer her to [facility] for post-d/c follow-up & CM with provide her with patient assistance program information. HTN - controlled on current regimen - prn hypertensive medications on board Hyperthyroidism - TSH low, T4 wnl - Continue methimazole Normocytic Anemia - Needs outpatient workup Hypokalemia, resolved CAUTI, resolved Wide complex tachycardia, resolved. - No events since 10/17/19. - Card was consulted & reported likely 2/2 aberrant conduction from a fib & tx is BB which she is already on & signed off. Appreciate recs. - Continue to monitor on tele. Diet: HH, puree, nectar/thick Code: Full Dispo: Remains in good condition. Per CM will most likely not be placed at rehab or SNF so started initiating various referrals yesterday for assistance programs for meds & HH therapy in the event patient has to be discharged home with family. Addendum - Attending - Attending Attestation Date/Time: 10/22/19 4109 I personally evaluated the patient and discussed the management with Dr. Doshi yesterday. I agree with the History, Examination, Assessment and Plan documented above with any addition or exceptions noted below.
[2019-10-21] MEDS: Metoprolol Tartrate 25 MG TAB PO SCH ×2 (08:45→20:48)
[2019-10-21] MEDS: Methimazole 10 MG TAB PO SCH ×2 (08:45→20:49)
[2019-10-21] MEDS: Polyethylene Glycol 3350 17 GM Packet PER TUBE SCH (08:45)
[2019-10-21] MEDS: Aspirin 81 mg Enteric Coated Tablet PO SCH (08:45)
[2019-10-21] MEDS: Famotidine 20 MG TAB PO SCH ×2 (08:45→20:48)
[2019-10-21] MEDS: Apixaban 5 MG TAB PO SCH (20:48)
[2019-10-22 07:26] VITALS: BMI 26.3
[2019-10-22 07:49] VITALS: TEMP 97.5
[2019-10-22] MEDS: Famotidine 20 MG TAB PO SCH (08:15)
[2019-10-22] MEDS: Polyethylene Glycol 3350 17 GM Packet PER TUBE SCH (08:15)
[2019-10-22] MEDS: Metoprolol Tartrate 25 MG TAB PO SCH (08:15)
[2019-10-22] MEDS: Methimazole 10 MG TAB PO SCH (08:15)
[2019-10-22] MEDS: Apixaban 5 MG TAB PO SCH (08:15)
[2019-10-22] MEDS: Aspirin 81 mg Enteric Coated Tablet PO SCH (08:15)
[2019-10-22 11:02] VITALS: BP 119/66
--- NOTE | 2019-10-23 10:18 | EKG ---
Test Reason : Blood Pressure : / mmHG Vent. Rate : 083 BPM Atrial Rate : 064 BPM P-R Int : 000 ms QRS Dur : 082 ms QT Int : 426 ms P-R-T Axes : 000 -22 036 degrees QTc Int : 500 ms Atrial fibrillation Low voltage QRS Cannot rule out Anterior infarct , age undetermined Prolonged QT Abnormal ECG Confirmed by MARVIN PRECIADO MD ([id number]), senior technical editor MARYANNE SEQUEIRA ([id number]) on 10/23/2019 10:17:57 AM Referred By: Confirmed By:MARVIN PRECIADO MD
--- NOTE | 2019-10-25 16:16 | DIS ---
DATE OF ADMISSION: 10/08/2019 DATE OF DISCHARGE: 10/22/2019 RESIDENT: Nanci Doshi MD ADMITTING ATTENDING: Neptali Lundberg MD DISCHARGE ATTENDING: Steven Colón MD CONSULTS: 1. Critical Care, Erwin Elliott MD. 2. Neurosurgery, Joseluis Castano MD. 3. Neurology, Freddy Sheridan MD. 4. Cardiology, Gordo Stacy MD. PROCEDURES PERFORMED: 1. Brain CT on 10/08/2019, notable for relative hyperdense right MCA (M1 segment ) relative to the contralateral side, which may suggest acute thrombus. No edema/ loss of murdock-white matter differentiation on the right is identified, however. Findings suggestive of remote infarcts involving the left frontal lobe and occipital lobes. 2. Chest x-ray on 10/08/2019, which showed a mild decompensated congestive heart failure. 3. CT [place]io with contrast on 10/08/2019, is notable for occluded, right M1 segment with early noncontrast CT changes of acute ischemic injury. Remote infarct within the left frontal lobe. A large thrombus of the right carotid bulb narrowing the origin of the right internal carotid artery with soft plaquing in the left carotid bulb and thyromegaly. 4. Angiography with mechanical thrombectomy on 10/08/2019. 5. Brain CT on 10/08/2019, at approximately 1800 notable for increasing edema change in the right middle cerebral artery territory with some mild hyperdensity in the external capsule region and the perisylvian region, which could indicate luxury perfusion or probably indicates fine petechial hemorrhage in this region. 6. Brain CT on 10/09/2019, notable for evolving hemorrhagic infarct in the right basal ganglia with increased vasogenic edema and mild effacement of the underlying sulci. Effacement of the frontal horn of the right lateral ventricle is seen. No significant [id number] midline shift is seen. Old infarct with encephalomalacia is seen in the left frontoparietal lobe. Old infarct with encephalomalacia is identified in the left posterior parietal occipital lobe. 7. Chest x-ray on 10/10/2019, which showed cardiomegaly with mild vascular engorgement and ET tube at the level of the enid as well as an NG tube coiled in the fundus region of the stomach. 8. Chest x-ray on 10/11/2019, which showed interval repositioning of the ET tube which is now above the level of the enid and NG tube stable in position with cardiomegaly without overt CHF as well as minimal pleural-based density in the lateral right lung base and improvement in linear infrequent changes of the left lung base with minimal atelectasis. 9. Chest x-ray on 10/12/2019, which showed a similar examination of the chest compared to a chest x-ray done the day prior. 10. Abdomen x-ray on 10/13/2019, which showed Dobhoff feeding tube noted in place. 11. Chest x-ray on 10/14/2019, which showed stable patchy interstitial reticulonodular opacities and interval removal of endotracheal and nasogastric tubes with interval placement of a Dobhoff feeding tube with the distal tip at the level of the gastric antrum. 12. Barium swallow with fluoroscopy which showed that no aspiration was appreciated. 13. Brain CT on 10/17/2019, which showed evolution of right MCA territory infarction without significant increase in size and continued decreased attenuation right MCA territory infarction with some retraction of the hemorrhagic clot. No acute superimposed hemorrhage or infarct. PRIMARY DIAGNOSES: 1. Acute ischemic cerebrovascular accident status post tPA and mechanical thrombectomy. 2. Postoperative intracranial hemorrhage. 3. Acute hypoxic respiratory failure 2/2 CVA w/ associated debility 4. E coli UTI. 5. Tracheobronchitis 2/2 Staph Aureus. SECONDARY DIAGNOSES: 1. Atrial fibrillation. 2. Hypertension. 3. Hyperthyroidism. DISCHARGE MEDICATION: 1. Robitussin DM 10 mL per tube q.4 hours p.r.n. 2. Lisa-Lube ophthalmic ointment one application in each eye as needed. 3. Apixaban 5 mg p.o. b.i.d. 4. Aspirin 81 mg daily. 5. Methimazole 10 mg p.o. b.i.d. 6. Metoprolol tartrate 50 mg p.o. b.i.d. DISCONTINUED MEDICATIONS: Metoprolol tartrate 100 mg p.o. daily. HOSPITAL COURSE: The patient is a 49YO female with a PMH significant for atrial fibrillation and Grave's disease who presented to the [facility] via EMS after reportedly collapsing in the bathroom at home 2/2 sudden onset L-sided weakness with facial droop ~ 1 hour [employer]. On presentation to the ED persistent deficits were noted with an NIHSS score of 13. Her vitals were WNLs with the exception of an elevated BP of 181/88. A CT brain & CTA were then urgently obtained whic noted a right sided MCA thrombus. The decision was made to administer TPA before transferring the patient to [facility] for further management. On arrival to [facility], the patient was evaluated by Neurosurgeon. Dr. Joseluis Castano, who decided to proceed with mechanical thrombectomy. The patient tolerated the procedure well and was admitted to the CCU unit for close observation. Following her procedure on the date of admission, a repeat head CT was obtained which did note a small petechial hemorrhage in the MCA territory. Later that evening, the patient developed acute hypoxic respiratory failure and, given her recent CVA, was deemed unable to protect her airway so an emergent endotracheal intubation was done. A repeat scan the next day showed slight evolution of the hemorrhage. The patient remained on mechanical ventilation through 10/14/2019 once she was deemed neurologically sound enough to clear her own secretions & adequate;y protect her airway. From the CCU she was transferred to the stroke unit to start working with PT and OT and to be evaluated by speech therapy. The patient was followed closely by the stroke team for her entire hospital stay & continued to regain strength & function daily. However, she was ultimately denied by all inpatient rehab and/or assisted facilities and was therefore discharged home with PT/OT/ST with close follow-up at [facility] to sign off on these orders. In addition, prior to discharge, a repeat CT brain done on 10/17/19 showed slight resolution of prior noted hemorrhage & no acute superimposed hemorrhage. On hospital day #3 the patient fevered up to 101F and studies showed she had a UTI and tracheobronchitis. Broad spectrum abx with IV vancomycin & Zosyn were started pending sensitivities which ultimately showed that she had an E coli UTI and staph aureus tracheobronchitis, both of which were susceptible to IV Rocephin. The infections were therefore treated with IV Rocephin for ~4 more days to complete a 7 day abx course. Regarding her atrial fibrillation, the patient remained rate controlled for essentially the entire duration of her hospital stay. However, on 10/17/19, Cardiology, Dr. Gordo Stacy, was consulted to come & evaluate the patient due to a short run of wide complex tachycardia that she had overnight. Dr. Stacy recommended continuing her BB therapy for rate control of her a fib and starting daily CVA PPX no sooner than 1 month following her ICH to be continued for life. However, per neurosurgery, the patient was deemed safe to begin QD anticoagulation with Eliquis BID & ASA ~ 12 days following her small hemorrhage noted on CT as her repeat scan on 10/17 showed it was already resolving. She was therefore discharged with a month supply of Eliquis and was given information for a financial assistance program via case management that she could apply for so that she could better afford the medication and remain on it unless otherwise directed by a physician. DISPOSITION: Stable. DISCHARGE INSTRUCTIONS: 1. Location: Home with home health therapy. 2. Diet: Heart healthy low-sodium diet with modifications per Speech Therapy to be continued at home. 3. Activity: Activity as tolerated, no restrictions. 4. Followup: The patient was instructed to follow up with [facility] on 10/28/2019, at 8:40 a.m. The patient was also instructed to follow up with Neurosurgery, Dr. Joseluis Castano within 14 days of discharge. Job ID: [id number] [facility]
== END 2019-10-22 13:02 | disposition home or self-care (01) | DRG 23 ==
LOC: ERS 02:20 → CCU 03:18 → 2SE 10-14 10:29
PROVIDERS: ADMIT Internal Medicine; ATTEND Family Medicine
PROC: 0BH18EZ Insertion of Endotracheal Airway into Trachea, Via Natural or Artificial Opening Endoscopic (ICD-10-PCS; principal; 2019-10-08)
PROC: 03CG3ZZ Extirpation of Matter from Intracranial Artery, Percutaneous Approach (ICD-10-PCS; 2019-10-08)
PROC: 5A09357 Assistance with Respiratory Ventilation, Less than 24 Consecutive Hours, Continuous Positive Airway Pressure (ICD-10-PCS; 2019-10-08)
PROC: 5A1955Z Respiratory Ventilation, Greater than 96 Consecutive Hours (ICD-10-PCS; 2019-10-08)
DX: I63.311 Cerebral infarction due to thrombosis of right middle cerebral artery (principal); J96.01 Acute respiratory failure with hypoxia; T83.511A Infection and inflammatory reaction due to indwelling urethral catheter, initial encounter; G93.41 Metabolic encephalopathy; I61.0 Nontraumatic intracerebral hemorrhage in hemisphere, subcortical; I48.19 Other persistent atrial fibrillation; G81.94 Hemiplegia, unspecified affecting left nondominant side; E87.2 Acidosis; I50.32 Chronic diastolic (congestive) heart failure; I47.2 Ventricular tachycardia; I97.821 Postprocedural cerebrovascular infarction following other surgery; E03.9 Hypothyroidism, unspecified; R40.2132 Coma scale, eyes open, to sound, at arrival to emergency department; R40.2362 Coma scale, best motor response, obeys commands, at arrival to emergency department; R40.2252 Coma scale, best verbal response, oriented, at arrival to emergency department; R29.719 NIHSS score 19; E05.00 Thyrotoxicosis with diffuse goiter without thyrotoxic crisis or storm; R47.81 Slurred speech; R29.810 Facial weakness; E87.6 Hypokalemia; B96.20 Unspecified Escherichia coli [E. coli] as the cause of diseases classified elsewhere; I11.0 Hypertensive heart disease with heart failure; J40 Bronchitis, not specified as acute or chronic; B95.61 Methicillin susceptible Staphylococcus aureus infection as the cause of diseases classified elsewhere; D64.9 Anemia, unspecified; Y84.6 Urinary catheterization as the cause of abnormal reaction of the patient, or of later complication, without mention of misadventure at the time of the procedure; Y83.8 Other surgical procedures as the cause of abnormal reaction of the patient, or of later complication, without mention of misadventure at the time of the procedure; Z92.82 Status post administration of tPA (rtPA) in a different facility within the last 24 hours prior to admission to current facility; Z79.899 Other long term (current) drug therapy; Z86.73 Personal history of transient ischemic attack (TIA), and cerebral infarction without residual deficits
CPT/HCPCS: 36415; 36416; 37184; 70450; 70496; 70498; 71045; 74018; 74230; 80048; 80061; 80076; 80306; 81001; 82150; 82805; 83605; 83690; 83735; 84100; 84145; 84439; 84443; 84481; 85025; 87040; 87070; 87077; 87086; 87149; 87186; 87205; 93005; 93306; 94002; 94003; 94640; 94660; C1757; C1887; C9113; J0696; J1160; J1644; J1720; J1940; J2001; J2060; J2405; J2543; J2704; J2920; J3480; J3490; J7050; J7620; Q9967

== ENCOUNTER 2019-12-21 08:28 | Outpatient (CLI) | payer OTHER | END 2019-12-21 08:29 | disposition home or self-care (01) | PROVIDERS: ATTEND Family Medicine | DX: I69.391 Dysphagia following cerebral infarction (principal) | CPT/HCPCS: 74230 ==